=== PATIENT | female | born 1950 | race Caucasian/White ===

== ENCOUNTER 2016-10-05 14:17 | Observation (INO) | payer MEDICARE ==
[2016-10-05 15:45] LABS: Mean Cell Volume 90.2 fl (78-100); Mean Platelet Volume 9.9 fl (6-9.5); Platelet Count 172 K/mm3 (150-450); Red Cell Distribution Width 14.3 % (11.5-14.0)
[2016-10-05 16:01] LABS: ANION GAP 12.8 MEQ/L (5-15); BLOOD UREA NITROGEN 12 mg/dL (9-20); CHLORIDE 107 mEq/L (98-107); Carbon Dioxide 25.3 mEq/L (21-32); Glucose 108 MG/DL (70-110); Potassium 3.9 mEq/L (3.5-5.1); SODIUM 141 mEq/L (136-145)
[2016-10-05] MEDS ORDERED: Sodium Chloride 0.9% 1000 ML 1,000 ML IV STA (16:48)
[2016-10-05] MEDS ORDERED: NovoLOG Insulin SQ PRN (16:48)
[2016-10-05] MEDS ORDERED: Zofran 4 MG/2 ML VIAL IV PRN (16:48)
[2016-10-05] MEDS ORDERED: TYLENOL 325 MG PO PRN (16:48)
[2016-10-05] MEDS: Sodium Chloride 0.9% 1000 ML 1,000 ML IV SCH (17:02)
--- NOTE | 2016-10-05 17:14 | XRAY ---
Indication: Cough, nausea, and vomiting. Comparison: December 20, 2014. Portable chest again clear. Heart and mediastinal structures within normal limits for AP portable technique. Bony thorax intact again with mild osteopenia and degenerative changes. Impression: Stable nonacute chest.
[2016-10-05] MEDS ORDERED: DUONEB 0.5-3 MG/3 ml Neb IH ONE (17:22)
[2016-10-05] MEDS: DUONEB 0.5-3 MG/3 ml Neb IH SCH ×3 (17:26→22:27)
[2016-10-05 17:27] LABS: Mean Corpuscular Hemoglobin 27.9 pg (26-32); Mean Platelet Volume 10.2 fl (6-9.5); Platelet Count 165 K/mm3 (150-450); Red Blood Count 4.51 M/mm3 (4.1-5.4); Red Cell Distribution Width 14.2 % (11.5-14.0); White Blood Count 4.9 K/mm3 (4.0-10.5)
[2016-10-05 17:45] LABS: ALBUMIN 3.2 g/dL (3.4-5.0); ALKALINE PHOSPHATASE 58 U/L (46-116); ANION GAP 12.8 MEQ/L (5-15); BILIRUBIN,TOTAL 0.4 mg/dL (0.2-1.0); BLOOD UREA NITROGEN 12 mg/dL (9-20); CHLORIDE 107 mEq/L (98-107); Carbon Dioxide 26.2 mEq/L (21-32); Glucose 102 MG/DL (70-110); SGOT/AST 26 U/L (15-37); SGPT/ALT 18 U/L (12-78); SODIUM 142 mEq/L (136-145)
[2016-10-05 19:12] LABS: ATYPICAL LYMPHS 1 %; BAND 4 % (0.0-2.0); Platelet Estimate NORMAL (NORMAL); Total Cells Counted 100
[2016-10-05] MEDS: Zestril 10 MG PO SCH (22:21)
[2016-10-05 23:41] LABS: COMPLETE URINE MICROSCOPIC? YES; Collection Type CLEAN CATCH; Ph 6.5 (5-6)
[2016-10-05 23:42] LABS: Bacteria FEW /HPF (NEGATIVE); Epithelial Cells FEW /HPF (FEW)
[2016-10-06] MEDS: DUONEB 0.5-3 MG/3 ml Neb IH SCH ×6 (03:32→23:23)
[2016-10-06] MEDS ORDERED: NON-FORMULARY ITEM (Ondansetron Hcl [Zofran] 4 MG) PO PRN (06:57)
[2016-10-06] MEDS: ENOXAPARIN SODIUM SQ SCH (09:05)
[2016-10-06] MEDS: Ditropan XL 5 MG PO SCH (10:00)
[2016-10-06] MEDS: Klor Con 10 MEQ PO SCH (10:00)
[2016-10-06] MEDS ORDERED: FLUZONE HIGH-DOSE 2016-17 SYR IM ONE (10:00)
[2016-10-06] MEDS ORDERED: OXYBUTYNIN CHLORIDE 10 MG PO SCH (10:00)
[2016-10-06] MEDS: Mobic 7.5 MG PO SCH (10:00)
[2016-10-06] MEDS: Zestril 10 MG PO SCH ×2 (10:00→21:41)
[2016-10-06] MEDS: Sodium Chloride 0.9% 1000 ML 1,000 ML IV SCH (14:09)
--- NOTE | 2016-10-06 14:24 | PROG NOTE ---
DATE: 10/06/2016 Chart is reviewed and events noted. At the time of this evaluation the patient is alert, awake, and comfortable. Complains of cough with green phlegm. Complains of loss of appetite. She had vomiting earlier this morning. Appears comfortable. PHYSICAL EXAMINATION: VITAL SIGNS: Blood pressure 117/56, heart rate 81, respiratory rate 20, temperature 97.8F. Oxygen saturation 96% on room air. HEENT: No pallor or icterus is noted. NECK: No JVD is present. CVS: S1, S2 present. RESPIRATORY: Breath sounds are bilaterally diminished and clear to auscultation anteriorly. ABDOMEN: Obese, soft, nontender. NEURO: She is alert, awake, answers simple questions appropriately, follows simple commands appropriately. EXTREMITIES: Chronic stasis changes in bilateral lower extremities. LABORATORY DATA AND TESTS: Labs from admission were noted. Chest x-ray showed no acute changes. Urine culture has been no growth so far. Blood cultures from 10/05/2016 are pending. Medications were reviewed. ASSESSMENT: A 66 year old woman with impression: 1) Acute bronchopneumonia. 2) Dehydration. 3) History of vomiting. 4) Question of urinary tract infection. 5) History of hypertension. 6) History of diabetes mellitus. 7) Prior history of transient ischemic attack. 8) Obesity. PLAN: The patient is admitted for further monitoring and management. Will continue IV fluids, PRN antiemetic. Will add a broad spectrum IV antibiotic. Will obtain flu test. The patient's was reportedly sick with similar symptoms/flu last week. Likely discharge home tomorrow. The patient's clinical condition, work-up results and plan of management were discussed with her. She seems to be in understanding and agreement. Will discuss with patient's daughter. Discussed with patient nurse.
[2016-10-06] MEDS: PROTONIX 40 MG IV IV SCH (14:35)
[2016-10-06] MEDS: Levofloxacin 500MG/100ML D5W 100 ML IV SCH (14:35)
[2016-10-07] MEDS: DUONEB 0.5-3 MG/3 ml Neb IH SCH ×3 (04:11→10:34)
[2016-10-07] MEDS: Zestril 10 MG PO SCH (10:17)
[2016-10-07] MEDS: Mobic 7.5 MG PO SCH (10:17)
[2016-10-07] MEDS: Ditropan XL 5 MG PO SCH (10:17)
[2016-10-07] MEDS: PROTONIX 40 MG IV IV SCH (10:17)
[2016-10-07] MEDS: Klor Con 10 MEQ PO SCH (10:17)
[2016-10-07] MEDS: ENOXAPARIN SODIUM SQ SCH (10:22)
[2016-10-07] MEDS: Sodium Chloride 0.9% 1000 ML 1,000 ML IV SCH (10:28)
[2016-10-07] MEDS: Levofloxacin 500MG/100ML D5W 100 ML IV SCH (12:56)
[2016-10-07] MEDS ORDERED: DUONEB 0.5-3 MG/3 ml Neb IH SCH (15:00)
[2016-10-07 15:49] VITALS: BP 150/58; PULSE 79; O2SAT 97
--- NOTE | 2016-10-08 12:15 | DS ---
DISCHARGE DIAGNOSES: 1) ACUTE BRONCHOPNEUMONIA, CLINICALLY IMPROVED. 2) DEHYDRATION, CLINICALLY RESOLVED. 3) HISTORY OF VOMITING, RESOLVED. 4) URINARY TRACT INFECTION. 5) HYPERTENSION. 6) DIABETES MELLITUS. 7) HISTORY OF TRANSIENT ISCHEMIC ATTACK. 8) OBESITY. HOSPITAL COURSE: Belle Barnes is a 66 year-old woman with past medical history of hypertension, diabetes mellitus, prior history of transient ischemic attack and obesity. She was seen by Dr. Alba in the office on 10/05/2016 and was admitted from office with persistent cough and dehydration. Lab work up on admission was essentially unremarkable. Urine culture essentially unremarkable. UA with few epithelial cells, few bacteria. She was placed on IV fluids. Subsequent lab work up had revealed unremarkable CBC. Normal hemoglobin A1C. Urine culture from 10/05/2016 had revealed no growth. Blood cultures from 10/05/2016 revealed no growth x2. She had been started on IV antibiotics with improvement of her symptoms. She was placed on regular diet that she had tolerated well. The rest of her course was essentially more or less unremarkable. She improved clinically. At the time of this evaluation she is alert, awake, comfortable, still having some cough however overall feels better. She denies any vomiting. She has been tolerating diet well. She feels better and is wishing to go home. Appears comfortable. PHYSICAL EXAMINATION: VITAL SIGNS: Blood pressure 116/55, heart rate 73, respiratory rate 22, temperature 98.7F. Oxygen saturation 92%. HEENT: No pallor or icterus is noted. NECK: No JVD is present. CVS: S1, S2 present. RESPIRATORY: Breath sounds are bilaterally diminished, occasional scattered wheezing present. ABDOMEN: Obese, soft. Minimal left upper abdominal tenderness (from coughing per patient). NEURO: She is alert, oriented x3. EXTREMITIES: Edema and chronic stasis changes in bilateral lower extremities. LABORATORY DATA AND TESTS: There were no new labs today. Flu A/B from yesterday was negative. Respiratory syncytial virus was negative. Lipase from yesterday was within normal limits. Medications were reviewed. ASSESSMENT: As outlined in discharge diagnoses. PLAN: The patient was admitted with acute bronchopneumonia/vomiting after prolonged cough. She was placed on IV fluids and antibiotics with clinical improvement. Her course has been essentially unremarkable. She improved clinically, remained hemodynamically stable. She was ambulating with stable oxygen saturations. She is being discharged home in stable condition. After discharge she will be continued on p.o. Levaquin for an additional three days. She has also been started on Medrol Dosepak and Tussionex. I have advised the patient to follow up with Dr. Alba in office in four to five days. Compliance with diet and medications was stressed. Complete cessation of smoking was stressed. I have advised her to continue to monitor her Accu-Chek and blood sugars closely. I advised her to return to the Emergency Room [facility] if any new signs and symptoms or reappearance of previous signs and symptoms are noted. The patient's clinical condition, work-up results and plan of management and plan after discharge were discussed at great length with patient and her daughter. They seem to be in understanding and agreement. They declined having any questions or concerns that remain unanswered. Please refer to patient's chart, labs, diagnostic work up for details. Please refer to discharge medication list from 10/07/2016 for details of medications on discharge.
== END 2016-10-07 17:00 | disposition home or self-care (01) ==
LOC: MED SURG 14:17
PROVIDERS: ADMIT General Practice; ATTEND General Practice
DX: J18.0 Bronchopneumonia, unspecified organism (principal); E86.0 Dehydration; N39.0 Urinary tract infection, site not specified; I10 Essential (primary) hypertension; E11.9 Type 2 diabetes mellitus without complications; Z79.4 Long term (current) use of insulin; Z86.73 Personal history of transient ischemic attack (TIA), and cerebral infarction without residual deficits; E66.9 Obesity, unspecified; G47.30 Sleep apnea, unspecified; K44.9 Diaphragmatic hernia without obstruction or gangrene; Z23 Encounter for immunization
CPT/HCPCS: 36415; 71010; 80048; 80053; 81000; 82962; 83036; 83690; 84134; 85025; 85027; 87040; 87086; 87631; 90662; 94640; 94760; G0008; G0378; J1650; J1956; J2405

== ENCOUNTER 2018-12-16 17:02 | Observation (INO) | payer MEDICARE ==
--- NOTE | 2018-12-16 17:17 | ERPHSYRPT ---
- History of Present Illness Time Seen by Provider: 12/16/18 17:14 Source: patient, EMS Exam Limitations: no limitations Patient Subjective Stated Complaint: pt arrived per ambulance for weakness, she states she fell once today and was able to get up with grandsons help. but states she is unable to get up now, Triage Nursing Assessment: pt alert, resp easy, skin w/d/p, has suprapubic cath in place with cloudy yellow urine, abd soft, has dry scally legs with some edema noted Physician History: pt is 68 year old female with acute onset weakness , nonfocal neuro , had fall but is nontender all ext without pain except hips , no CP , no abd pain , has chronic cath as suprapubic in place more than a year; also had fall striking head and back with hip pain now and dizziness Timing/Duration: today Severity: moderate Modifying Factors: Improves With: movement Associated Symptoms: malaise, weakness Allergies/Adverse Reactions: amoxicillin Allergy (Verified 12/16/18 17:11) Swelling of Tongue and Lips pregabalin [From Lyrica] Allergy (Verified 12/16/18 17:11) swelling morphine Adverse Reaction (Severe, Verified 12/16/18 17:11) Difficulty Breathing Home Medications: Furosemide [Lasix] 20 mg PO DAILY 02/18/16 [History] Lisinopril 10 mg [Zestril 10 MG] 10 mg PO BID 02/18/16 [History] Potassium Chloride 10 Meq Tab* [Klor Con 10 MEQ] 10 meq PO DAILY 02/18/16 [ History] Ondansetron HCl [Zofran] 4 mg PO Q8HPRN PRN 10/05/16 [History] Fesoterodine Fumarate [Toviaz] 8 mg DAILY 12/16/18 [History] Sertraline HCl 50 mg DAILY 12/16/18 [History] Tramadol HCl 50 mg [Ultram 50 mg] 50 mg BID 12/16/18 [History] Hx Tetanus, Diphtheria Vaccination/Date Given: Yes Hx Influenza Vaccination/Date Given: No Hx Pneumococcal Vaccination/Date Given: No Immunizations Up to Date: Yes - Review of Systems Constitutional: Malaise, Weakness, No Fever, No Chills Eyes: No Symptoms Ears, Nose, & Throat: No Symptoms Respiratory: No Cough, No Dyspnea Cardiac: No Chest Pain, No Edema, No Syncope Abdominal/Gastrointestinal: No Abdominal Pain, No Nausea, No Vomiting, No Diarrhea Genitourinary Symptoms: No Dysuria Musculoskeletal: No Back Pain, No Neck Pain Skin: No Rash Neurological: Dizziness, No Focal Weakness, No Sensory Changes Psychological: No Symptoms Endocrine: No Symptoms Hematologic/Lymphatic: No Symptoms Immunological/Allergic: No Symptoms All Other Systems: Reviewed and Negative - Past Medical History Pertinent Past Medical History: Yes Neurological History: Peripheral Neuropathy, TIA ENT History: Other Cardiac History: Hypertension Respiratory History: COPD, Sleep Apnea Endocrine Medical History: Diabetes Type II Musculoskeletal History: Arthritis GI Medical History: GERD, Other History: Other Psycho-Social History: Anxiety, Depression Female Reproductive Disorders: No Pertinent History Other Medical History: bladder incontinence hysterectomy and gall bladder removed, dry eyes - Past Surgical History Past Surgical History: Yes Neuro Surgical History: No Pertinent History Cardiac: No Pertinent History Respiratory: No Pertinent History Gastrointestinal: Cholecystectomy, Colon Resection Genitourinary: No Pertinent History Musculoskeletal: No Pertinent History Female Surgical History: Hysterectomy, Tubal Ligation - Social History Smoking Status: Former smoker Exposure to second hand smoke: No Drug Use: none Patient Lives Alone: No - Female History Hx Last Menstrual Period: psot Hx Now: No - Nursing Vital Signs Nursing Vital Signs: Initial Vital Signs Temperature 97.4 F 12/16/18 17:04 Pulse Rate 73 12/16/18 17:04 Respiratory Rate 18 12/16/18 17:04 Blood Pressure 131/67 12/16/18 17:04 O2 Sat by Pulse Oximetry 93 L 12/16/18 17:04 Pain Scale Pain Intensity 0 - Physical Exam General Appearance: no apparent distress, alert Eye Exam: PERRL/EOMI, eyes nml inspection Ears, Nose, Throat Exam: normal ENT inspection, TMs normal, pharynx normal, moist mucous membranes Neck Exam: normal inspection, non-tender, supple, full range of motion Respiratory Exam: normal breath sounds, lungs clear, No respiratory distress Cardiovascular Exam: regular rate/rhythm, normal heart sounds, normal peripheral pulses Gastrointestinal/Abdomen Exam: soft, normal bowel sounds, No tenderness, No mass Pelvic Exam: deferred Rectal Exam: deferred Back Exam: normal inspection, normal range of motion, other (mid and lower paravert tenderness), No CVA tenderness Extremity Exam: normal inspection, normal range of motion, pelvis stable Neurologic Exam: alert, oriented x 3, cooperative, normal mood/affect, nml cerebellar function, nml station & gait, sensation nml, No motor deficits Skin Exam: normal color, warm, dry, No rash Lymphatic Exam: No adenopathy SpO2: 93 - Course Nursing assessment & vital signs reviewed: Yes EKG Interpreted by Me: Sinus Rhythm, NORMAL AXIS, LAFB, NORMAL INTERVALS, Non- specific ST Changes - Radiology Exams Chest X-ray Interpretation: Reviewed by me, Infiltrates Hip X-ray Interpretation: Reviewed by me, Other (possible nondisp left hip fx - sent to rad for stat) L-Spine X-ray Interpretation: Reviewed by me, Other (DJD and lipping cannot rule out mild comp fx) T-Spine X-ray Interpretation: Reviewed by me, Other (djd ant lipping cannot rule out mild comp fxs) - CT Exams Head CT Interpretation: Discussed w/radiologist, Tele-radiologist Report, No/ Intracranial Hemorrhag Chest CT Interpretation: Discussed w/radiologist, Tele-radiologist Report, No PE ( study was not able to see mid and distal vessels well, but no large vessel PE) Ordered Tests: Active Orders 24 hr Category Date Time Status EKG-ER Only STAT Care 12/16/18 17:17 Active IV Insertion STAT Care 12/16/18 17:17 Active CHEST 2 VIEWS (PA AND LAT) Stat Exams 12/16/18 17:18 Completed CHEST WITH CONTRAST [CT] Stat Exams 12/16/18 17:50 Completed HEAD WITHOUT CONTRAST [CT] Stat Exams 12/16/18 17:21 Completed HIPS BENNETT(2V) INCL PEL IF DONE Stat Exams 12/16/18 17:25 Completed LUMBAR LIMITED (2 OR 3 VIEWS) Stat Exams 12/16/18 17:24 Completed THORACIC SPINE (AP,LAT,SWIMM) Stat Exams 12/16/18 17:24 Completed CBC W DIFF Stat Lab 12/16/18 17:30 Completed CMP Stat Lab 12/16/18 17:30 Completed CULTURE,URINE Stat Lab 12/16/18 19:42 Received D-DIMER QUANTITATION Stat Lab 12/16/18 17:30 Completed LIPASE Stat Lab 12/16/18 17:30 Completed Lactic Acid Stat Lab 12/16/18 17:17 Completed Manual Differential NC Stat Lab 12/16/18 17:30 Completed NT PRO BNP Stat Lab 12/16/18 17:30 Completed T4 (Thyroxine) Stat Lab 12/16/18 17:30 Completed TROPONIN Q3H Lab 12/16/18 20:44 Received TROPONIN Q3H Lab 12/16/18 23:30 Ordered TROPONIN Q3H Lab 12/17/18 02:30 Ordered TROPONIN Q3H Lab 12/17/18 05:30 Ordered TROPONIN Stat Lab 12/16/18 17:30 Completed TSH, 3RD Generation Stat Lab 12/16/18 17:30 Completed UA W/RFX UR CULTURE Stat Lab 12/16/18 19:42 Completed Lab/Rad Data: Laboratory Result Diagrams 12/16/18 17:30 12/16/18 17:30 Laboratory Results 12/16/18 12/16/18 12/16/18 Range/Units 20:30 19:42 17:30 WBC (4.0-10.5) K/mm3 RBC (4.1-5.4) M/mm3 Hgb (12.0-16.0) gm/dl Hct (35-47) % MCV (78-100) fl MCH (26-32) pg MCHC (32-36) g/dl RDW (11.5-14.0) % Plt Count (150-450) K/mm3 Segmented Neutrophils (36.0-66.0) % Band Neutrophils (0.0-2.0) % Lymphocytes (Manual) (24-44) % Monocytes (Manual) (0.0-12.0) % Eosinophils (Manual) (0.00-3.0) % Atypical Lymphocytes % Platelet Estimate (NORMAL) RBC Morphology Anisocytosis D-Dimer 1222 H* (215-500) ng/mL Sodium (137-145) mmol/L Potassium (3.5-5.1) mmol/L Chloride (98-107) mmol/L Carbon Dioxide (22-30) mmol/L Anion Gap (5-15) MEQ/L BUN (7-17) mg/dL Creatinine (0.52-1.04) mg/dL Estimated GFR ML/MIN Glucose (74-106) mg/dL Lactic Acid (0.4-2.0) Calcium (8.4-10.2) mg/dL Total Bilirubin (0.2-1.3) mg/dL AST (14-36) U/L ALT (0-35) U/L Alkaline Phosphatase (38-126) U/L Troponin I (0.000-0.034) ng/mL NT-Pro-B Natriuret Pep (0-900) pg/mL Serum Total Protein (6.3-8.2) g/dL Albumin (3.5-5.0) g/dL Lipase (23-300) U/L Thyroxine (T4) (5.53-10.96) ug/dL TSH 3rd Generation (0.47-4.68) mIU/L Urine Color STRAW (YELLOW) Urine Appearance CLEAR (CLEAR) Urine pH 7.0 (5-6) Ur Specific [place] 1.015 (1.005-1.025) Urine Protein NEGATIVE (Negative) Urine Ketones NEGATIVE (NEGATIVE) Urine Blood SMALL (0-5) Efren/ul Urine Nitrite POSITIVE (NEGATIVE) Urine Bilirubin NEGATIVE (NEGATIVE) Urine Urobilinogen NEGATIVE (0-1) mg/dL Ur Leukocyte Esterase LARGE (NEGATIVE) Urine WBC (Auto) 26-50 (0-5) /HPF Urine RBC (Auto) 3-5 (0-2) /HPF U Epithel Cells (Auto) NONE (FEW) /HPF Urine Bacteria (Auto) RARE (NEGATIVE) /HPF Urine Mucus (Auto) SLIGHT (NEGATIVE) /HPF Urine Culture Reflexed YES (NO) Urine Glucose NEGATIVE (NEGATIVE) mg/dL Influenza Type A Ag NEGATIVE (NEGATIVE) Influenza Type B Ag NEGATIVE (NEGATIVE) RSV (PCR) NEGATIVE (Negative) 12/16/18 12/16/18 12/16/18 Range/Units 17:30 17:30 17:17 WBC 9.0 (4.0-10.5) K/mm3 RBC 4.89 (4.1-5.4) M/mm3 Hgb 14.1 (12.0-16.0) gm/dl Hct 44.4 (35-47) % MCV 90.8 (78-100) fl MCH 28.8 (26-32) pg MCHC 31.8 L (32-36) g/dl RDW 14.0 (11.5-14.0) % Plt Count 230 (150-450) K/mm3 Segmented Neutrophils 64 (36.0-66.0) % Band Neutrophils 2 (0.0-2.0) % Lymphocytes (Manual) 24 (24-44) % Monocytes (Manual) 4 (0.0-12.0) % Eosinophils (Manual) 1 (0.00-3.0) % Atypical Lymphocytes 5 % Platelet Estimate NORMAL (NORMAL) RBC Morphology NORMAL Anisocytosis 1+ D-Dimer (215-500) ng/mL Sodium 141 (137-145) mmol/L Potassium 3.3 L (3.5-5.1) mmol/L Chloride 100 (98-107) mmol/L Carbon Dioxide 31 H (22-30) mmol/L Anion Gap 14.2 (5-15) MEQ/L BUN 18 H (7-17) mg/dL Creatinine 1.04 (0.52-1.04) mg/dL Estimated GFR 56.0 ML/MIN Glucose 115 H (74-106) mg/dL Lactic Acid 1.6 (0.4-2.0) Calcium 9.0 (8.4-10.2) mg/dL Total Bilirubin 0.50 (0.2-1.3) mg/dL AST 33 (14-36) U/L ALT 23 (0-35) U/L Alkaline Phosphatase 68 (38-126) U/L Troponin I < 0.012 (0.000-0.034) ng/mL NT-Pro-B Natriuret Pep 90.4 (0-900) pg/mL Serum Total Protein 7.5 (6.3-8.2) g/dL Albumin 4.0 (3.5-5.0) g/dL Lipase 83 (23-300) U/L Thyroxine (T4) 17.6 H (5.53-10.96) ug/dL TSH 3rd Generation 0.727 (0.47-4.68) mIU/L Urine Color (YELLOW) Urine Appearance (CLEAR) Urine pH (5-6) Ur Specific [place] (1.005-1.025) Urine Protein (Negative) Urine Ketones (NEGATIVE) Urine Blood (0-5) Efren/ul Urine Nitrite (NEGATIVE) Urine Bilirubin (NEGATIVE) Urine Urobilinogen (0-1) mg/dL Ur Leukocyte Esterase (NEGATIVE) Urine WBC (Auto) (0-5) /HPF Urine RBC (Auto) (0-2) /HPF U Epithel Cells (Auto) (FEW) /HPF Urine Bacteria (Auto) (NEGATIVE) /HPF Urine Mucus (Auto) (NEGATIVE) /HPF Urine Culture Reflexed (NO) Urine Glucose (NEGATIVE) mg/dL Influenza Type A Ag (NEGATIVE) Influenza Type B Ag (NEGATIVE) RSV (PCR) (Negative) - Progress Progress: improved, re-examined Progress Note: 12/16/18 19:36 risk benefit if PE protocol dye discussed with family and pt and they wish to proceed also knowing renal risk and slight elevation of BUN but within protocol limits. 12/16/18 19:38 pt and family advised of CAD adn enlarged heart on CT for f/u PCP. 12/16/18 20:10 still waiting for urine result causing some additional delay. 12/16/18 21:21 discussed with pt and Dr. pineda and will place on obs and correct K and treat UTI and recheck T4 , hold tx for T 4 at this time; Discussed with .: Neri Will see patient in: hospital (observation) Counseled pt/family regarding: lab results, diagnosis, need for follow-up, rad results - Departure Departure Disposition: Observation Clinical Impression: Weakness generalized, Hypokalemia, UTI (urinary tract infection), elevated thyroid test Condition: Good Critical Care Time: No Referrals: TASHI NEVAREZ MD [Primary Care Provider] -
[2018-12-16 17:34] LABS: Hematocrit 44.4 % (35-47); Hemoglobin 14.1 gm/dl (12.0-16.0); Mean Cell Volume 90.8 fl (78-100); Mean Corpuscular Hemoglobin 28.8 pg (26-32); Mean Corpuscular Hgb Concent. 31.8 g/dl (32-36); Platelet Count 230 K/mm3 (150-450); Red Blood Count 4.89 M/mm3 (4.1-5.4)
[2018-12-16 18:14] LABS: ALKALINE PHOSPHATASE 68 U/L (38-126); ANION GAP 14.2 MEQ/L (5-15); BLOOD UREA NITROGEN 18 mg/dL (7-17); CHLORIDE 100 mmol/L (98-107); Carbon Dioxide 31 mmol/L (22-30); Creatinine 1 1.04 mg/dL (0.52-1.04); Glucose 115 mg/dL (74-106); LIPASE 83 U/L (23-300); NT PRO BNP 90.4 pg/mL (0-900); Potassium 3.3 mmol/L (3.5-5.1); SGOT/AST 33 U/L (14-36); SGPT/ALT 23 U/L (0-35); SODIUM 141 mmol/L (137-145); TSH, 3RD Generation 0.727 mIU/L (0.47-4.68); Total Protein 7.5 g/dL (6.3-8.2)
[2018-12-16 18:17] LABS: TROPONIN < 0.012 ng/mL (0.000-0.034)
[2018-12-16 18:28] LABS: ANISOCYTOSIS 1+; ATYPICAL LYMPHS 5 %; BAND 2 % (0.0-2.0); Eosinophil 1 % (0.00-3.0); Lymphocytes 24 % (24-44); Monocyte 4 % (0.0-12.0); Neutrophils 64 % (36.0-66.0); Platelet Estimate NORMAL (NORMAL); Total Cells Counted 100
--- NOTE | 2018-12-16 20:34 | XRAY ---
Indication: Elevated d-dimer. Status post fall. Multiple contiguous axial images obtained through the chest using 100 cc Isovue 300 contrast and PE protocol. Comparison: February 18, 2016. There is poor opacification of the pulmonary arteries limiting evaluation for pulmonary embolus. No large central pulmonary embolus. Heart is not enlarged. Aorta is normal in course and caliber. Stable small left hilar calcified nodes. No pathologic mediastinal/hilar lymphadenopathy. Examination of the lung parenchyma demonstrates minimal bilateral dependent atelectasis. No suspicious pulmonary mass, infiltrate, effusion, or pneumothorax. Bony thorax intact again with mild degenerative changes throughout the spine. Limited upper abdomen unremarkable. Impression: 1. Pulmonary embolus evaluation limited due to suboptimal contrast opacification. No large central pulmonary embolus. 2. Stable left hilar calcified node. 3. Remaining CT chest with contrast exam is negative. Comment: Preliminary interpretation was made by [facility]. No discrepancy. CTDI 23.68
--- NOTE | 2018-12-16 20:36 | XRAY ---
Indication: Status post fall. Comparison: October 05, 2016. Portable chest remains clear. Heart is not enlarged. Bony thorax intact again with mild osteopenia and degenerative changes. Impression: Stable nonacute chest with chronic features.
--- NOTE | 2018-12-16 20:39 | XRAY ---
Indication: Pain following fall. Multiple contiguous axial images obtained through the head without contrast. Comparison: February 18, 2016. Again age appropriate global atrophy and minimal periventricular degenerative micro-ischemia. No acute intracranial hemorrhage, abnormal extra-axial fluid collection, or mass effect. Fourth ventricle is midline without hydrocephalus. Bony calvarium intact. Visualized paranasal sinuses and mastoid air cells are clear. Impression: Stable nonacute senile brain. Comment: Preliminary interpretation was made by [facility]. No discrepancy. CTDI 49.41
[2018-12-16 20:40] LABS: Appearance CLEAR (CLEAR); Bacteria RARE /HPF (NEGATIVE); Bilirubin NEGATIVE (NEGATIVE); Blood SMALL Ery/ul (0-5); Glucose NEGATIVE (NEGATIVE); Ketones NEGATIVE (NEGATIVE); Leukocyte Esterase LARGE (NEGATIVE); Mucus SLIGHT /HPF (NEGATIVE); Nitrite POSITIVE (NEGATIVE); Protein,Urine Dip NEGATIVE (Negative); Specific Gravity 1.015 (1.005-1.025); Urobilinogen NEGATIVE mg/dL (0-1); WBC 26-50 /HPF (0-5)
[2018-12-16 20:41] LABS: INFLUENZA A NEGATIVE (NEGATIVE); INFLUENZA B NEGATIVE (NEGATIVE); RESPIRATORY SYNCTIAL VIRUS NEGATIVE (Negative)
--- NOTE | 2018-12-16 20:41 | XRAY ---
Indication: Pain following fall. Comparison: February 21, 2010. 3 views of the lumbar spine again demonstrates osteopenia, mild/moderate L4-S1 degenerative disc disease, minimal multilevel anterior endplate spurring, advanced degenerative changes of both hips, and minimal aortic calcifications. No acute fracture, subluxation, or soft tissue abnormalities. Impression: Nonacute lumbar spine with chronic features.
--- NOTE | 2018-12-16 20:41 | XRAY ---
Indication: Pain following fall. Comparison: None Frontal/lateral thoracic spine demonstrates 12 typical rib-bearing thoracic vertebral segments in normal alignment with mild osteopenia and mild/moderate multilevel bridging and nonbridging end plate osteophytes. No other bony, articular, or soft tissue abnormalities.
--- NOTE | 2018-12-16 20:45 | XRAY ---
Indication: Pain following fall. Comparison: Right hip exam September 01, 2010 and pelvis exam February 21, 2010. AP pelvis and 2 views of the left and right hip again demonstrates osteopenia with progressive worsening advanced degenerative changes of both hips, again left greater than right including worsening left femur head lateral subluxation. No new/acute findings. Lumbar spine reported separately. Comment: Preliminary interpretation was made by [facility]. No discrepancy.
[2018-12-16] MEDS ORDERED: K-LYTE 25 MEQ PO ONE (22:34)
[2018-12-16] MEDS ORDERED: NovoLIN R SQ PRN (22:34)
[2018-12-16] MEDS ORDERED: TYLENOL 325 MG PO PRN (22:34)
[2018-12-16] MEDS ORDERED: Zofran 4 MG/2 ML VIAL IV PRN (22:34)
[2018-12-16] MEDS: Sodium Chloride 0.9% 1000 ML 1,000 ML IV SCH (23:08)
[2018-12-16] MEDS: POTASSIUM CHLORIDE 20 mEq IN WATER 100ML 20 MEQ/100 ML BAG IV SCH (23:29)
[2018-12-17] MEDS: POTASSIUM CHLORIDE 20 mEq IN WATER 100ML 20 MEQ/100 ML BAG IV SCH (01:33)
[2018-12-17 06:14] LABS: Hemoglobin 12.6 gm/dl (12.0-16.0); Mean Cell Volume 91.3 fl (78-100); Mean Corpuscular Hemoglobin 28.8 pg (26-32); Mean Corpuscular Hgb Concent. 31.5 g/dl (32-36); Mean Platelet Volume 10.1 fl (6-9.5); Platelet Count 203 K/mm3 (150-450); Red Blood Count 4.38 M/mm3 (4.1-5.4); White Blood Count 5.8 K/mm3 (4.0-10.5)
[2018-12-17 06:24] LABS: ALBUMIN 3.2 g/dL (3.5-5.0); ALKALINE PHOSPHATASE 57 U/L (38-126); ANION GAP 8.7 MEQ/L (5-15); BLOOD UREA NITROGEN 17 mg/dL (7-17); CHLORIDE 101 mmol/L (98-107); Calcium 8.2 mg/dL (8.4-10.2); Carbon Dioxide 31 mmol/L (22-30); Glucose 114 mg/dL (74-106); SGOT/AST 32 U/L (14-36); SGPT/ALT 21 U/L (0-35); SODIUM 136 mmol/L (137-145); Total Protein 6.5 g/dL (6.3-8.2)
[2018-12-17 06:45] LABS: Potassium 4.1 mmol/L (3.5-5.1)
[2018-12-17] MEDS: Sodium Chloride 0.9% 1000 ML 1,000 ML IV SCH ×2 (06:46→17:13)
[2018-12-17 08:25] LABS: BAND 1 % (0.0-2.0); Basophil 2 % (0.0-1.0); Eosinophil 1 % (0.00-3.0); Lymphocytes 29 % (24-44); Monocyte 4 % (0.0-12.0); Neutrophils 63 % (36.0-66.0); Total Cells Counted 100
[2018-12-17 08:26] LABS: Platelet Estimate NORMAL (NORMAL)
--- NOTE | 2018-12-17 09:08 | PCM.HP ---
History of Present Illness - Chief Complaint Chief Complaint: c/o generalised weakness for 3-4 days History of Present Illness: pt is 68 year old female with acute onset weakness , nonfocal neuro , had fall but is nontender all ext without pain except hips , no CP , no abd pain , has chronic cath as suprapubic in place more than a year; also had fall striking head and back with hip pain now and dizziness - Review of Systems Constitutional: No Fever, No Chills Eyes: No Symptoms Ears, Nose, & Throat: No Symptoms Respiratory: No Cough, No Short Of Breath Cardiac: No Chest Pain, No Edema, No Syncope Abdominal/Gastrointestinal: No Abdominal Pain, No Nausea, No Vomiting, No Diarrhea Genitourinary Symptoms: No Dysuria Musculoskeletal: No Back Pain, No Neck Pain Skin: No Rash Neurological: No Dizziness, No Focal Weakness, No Sensory Changes Psychological: No Symptoms Endocrine: No Symptoms Hematologic/Lymphatic: No Symptoms Immunological/Allergic: No Symptoms Medications & Allergies Home Medications: Home Medication List Furosemide [Lasix] 20 mg PO DAILY 02/18/16 [History Confirmed 12/16/18] Lisinopril 10 mg [Zestril 10 MG] 10 mg PO BID 02/18/16 [History Confirmed 12/16/18] Potassium Chloride 10 Meq Tab* [Klor Con 10 MEQ] 10 meq PO DAILY 02/18/16 [ History Confirmed 12/16/18] Ondansetron HCl [Zofran] 4 mg PO Q8HPRN PRN 10/05/16 [History Confirmed 12/16/18 ] Fesoterodine Fumarate [Toviaz] 8 mg DAILY 12/16/18 [History Confirmed 12/16/18] Sertraline HCl 50 mg DAILY 12/16/18 [History Confirmed 12/16/18] Tramadol HCl 50 mg [Ultram 50 mg] 50 mg BID 12/16/18 [History Confirmed ] Allergies/Adverse Reactions: Allergies Allergy/AdvReac Type Severity Reaction Status Date / Time amoxicillin Allergy Swelling Verified 12/16/18 17:11 of Tongue and Lips pregabalin [From Lyrica] Allergy Verified 12/16/18 17:11 morphine AdvReac Severe Difficulty Verified 12/16/18 17:11 Breathing - Past Medical History Past Medical History: Yes Neurological History: Peripheral Neuropathy, TIA ENT History: Other Cardiac History: Hypertension Respiratory History: COPD, Sleep Apnea Endocrine Medical History: Diabetes Type II Musculoskelatal History: Arthritis GI Medical History: GERD, Other History: Other Pyscho-Social History: Anxiety, Depression Reproductive Disorders: No Pertinent History Comment: bladder incontinence hysterectomy and gall bladder removed, dry eyes - Female History Hx Last Menstrual Period: psot Are you now?: No - Past Surgical History Past Surgical History: Yes Neuro Surgical History: No Pertinent History Cardiac History: No Pertinent History Respiratory Surgery: No Pertinent History GI Surgical History: Cholecystectomy, Colon Resection Genitourinary Surgical Hx: No Pertinent History Musculskeletal Surgical Hx: No Pertinent History Female Surgical History: Hysterectomy, Tubal Ligation - Social History Smoking Status: Never smoker Exposure to second hand smoke: No Alcohol: None Drug Use: none - Physical Exam Vital Signs: Vital Signs - 24 hr Temp Pulse Resp BP Pulse Ox 12/17/18 08:00 98.2 F 69 18 133/57 94 L 12/17/18 03:48 98.8 F 73 18 119/56 94 L 12/17/18 00:10 97.4 F 72 128/56 93 L 12/16/18 22:55 93 L 12/16/18 21:23 93 L 12/16/18 21:07 72 18 128/56 94 L 12/16/18 20:13 77 18 136/57 93 L 12/16/18 19:33 75 16 134/69 95 12/16/18 17:04 97.4 F 73 18 131/67 93 L General Appearance: no apparent distress, alert Neurologic Exam: alert, oriented x 3, cooperative, normal mood/affect, nml cerebellar function, nml station & gait, sensation nml, No motor deficits Eye Exam: PERRL/EOMI, eyes nml inspection Ears, Nose, Throat Exam: normal ENT inspection, TMs normal, pharynx normal, moist mucous membranes Neck Exam: normal inspection, non-tender, supple, full range of motion Respiratory Exam: normal breath sounds, lungs clear, No respiratory distress Cardiovascular Exam: regular rate/rhythm, normal heart sounds, normal peripheral pulses Gastrointestinal/Abdomen Exam: soft, normal bowel sounds, No tenderness, No mass Back Exam: normal inspection, normal range of motion, No CVA tenderness, No vertebral tenderness Extremity Exam: normal inspection, normal range of motion, pelvis stable Skin Exam: normal color, warm, dry, No rash Lymphatic Exam: No adenopathy Results - Labs Lab/Micro Results: Accuchecks Accucheck Value: 118 Lab Results-Last 24 Hours 12/16/18 12/16/18 12/16/18 Range/Units 17:17 17:30 17:30 WBC 9.0 (4.0-10.5) K/mm3 RBC 4.89 (4.1-5.4) M/mm3 Hgb 14.1 (12.0-16.0) gm/dl Hct 44.4 (35-47) % MCV 90.8 (78-100) fl MCH 28.8 (26-32) pg MCHC 31.8 L (32-36) g/dl RDW 14.0 (11.5-14.0) % Plt Count 230 (150-450) K/mm3 MPV (6-9.5) fl Segmented Neutrophils 64 (36.0-66.0) % Band Neutrophils 2 (0.0-2.0) % Lymphocytes (Manual) 24 (24-44) % Monocytes (Manual) 4 (0.0-12.0) % Eosinophils (Manual) 1 (0.00-3.0) % Basophils (Manual) (0.0-1.0) % Atypical Lymphocytes 5 % Platelet Estimate NORMAL (NORMAL) RBC Morphology NORMAL Anisocytosis 1+ D-Dimer (215-500) ng/mL Sodium 141 (137-145) mmol/L Potassium 3.3 L (3.5-5.1) mmol/L Chloride 100 (98-107) mmol/L Carbon Dioxide 31 H (22-30) mmol/L Anion Gap 14.2 (5-15) MEQ/L BUN 18 H (7-17) mg/dL Creatinine 1.04 (0.52-1.04) mg/dL Estimated GFR 56.0 ML/MIN Glucose 115 H (74-106) mg/dL Hemoglobin A1c (4.5-6.0) % Lactic Acid 1.6 (0.4-2.0) Calcium 9.0 (8.4-10.2) mg/dL Total Bilirubin 0.50 (0.2-1.3) mg/dL AST 33 (14-36) U/L ALT 23 (0-35) U/L Alkaline Phosphatase 68 (38-126) U/L Troponin I < 0.012 (0.000-0.034) ng/mL NT-Pro-B Natriuret Pep 90.4 (0-900) pg/mL Serum Total Protein 7.5 (6.3-8.2) g/dL Albumin 4.0 (3.5-5.0) g/dL Lipase 83 (23-300) U/L Thyroxine (T4) 17.6 H (5.53-10.96) ug/dL TSH 3rd Generation 0.727 (0.47-4.68) mIU/L Urine Color (YELLOW) Urine Appearance (CLEAR) Urine pH (5-6) Ur Specific [place] (1.005-1.025) Urine Protein (Negative) Urine Ketones (NEGATIVE) Urine Blood (0-5) Efren/ul Urine Nitrite (NEGATIVE) Urine Bilirubin (NEGATIVE) Urine Urobilinogen (0-1) mg/dL Ur Leukocyte Esterase (NEGATIVE) Urine WBC (Auto) (0-5) /HPF Urine RBC (Auto) (0-2) /HPF U Epithel Cells (Auto) (FEW) /HPF Urine Bacteria (Auto) (NEGATIVE) /HPF Urine Mucus (Auto) (NEGATIVE) /HPF Urine Culture Reflexed (NO) Urine Glucose (NEGATIVE) mg/dL Influenza Type A Ag (NEGATIVE) Influenza Type B Ag (NEGATIVE) RSV (PCR) (Negative) 12/16/18 12/16/18 12/16/18 Range/Units 17:30 19:42 20:30 WBC (4.0-10.5) K/mm3 RBC (4.1-5.4) M/mm3 Hgb (12.0-16.0) gm/dl Hct (35-47) % MCV (78-100) fl MCH (26-32) pg MCHC (32-36) g/dl RDW (11.5-14.0) % Plt Count (150-450) K/mm3 MPV (6-9.5) fl Segmented Neutrophils (36.0-66.0) % Band Neutrophils (0.0-2.0) % Lymphocytes (Manual) (24-44) % Monocytes (Manual) (0.0-12.0) % Eosinophils (Manual) (0.00-3.0) % Basophils (Manual) (0.0-1.0) % Atypical Lymphocytes % Platelet Estimate (NORMAL) RBC Morphology Anisocytosis D-Dimer 1222 H* (215-500) ng/mL Sodium (137-145) mmol/L Potassium (3.5-5.1) mmol/L Chloride (98-107) mmol/L Carbon Dioxide (22-30) mmol/L Anion Gap (5-15) MEQ/L BUN (7-17) mg/dL Creatinine (0.52-1.04) mg/dL Estimated GFR ML/MIN Glucose (74-106) mg/dL Hemoglobin A1c (4.5-6.0) % Lactic Acid (0.4-2.0) Calcium (8.4-10.2) mg/dL Total Bilirubin (0.2-1.3) mg/dL AST (14-36) U/L ALT (0-35) U/L Alkaline Phosphatase (38-126) U/L Troponin I (0.000-0.034) ng/mL NT-Pro-B Natriuret Pep (0-900) pg/mL Serum Total Protein (6.3-8.2) g/dL Albumin (3.5-5.0) g/dL Lipase (23-300) U/L Thyroxine (T4) (5.53-10.96) ug/dL TSH 3rd Generation (0.47-4.68) mIU/L Urine Color STRAW (YELLOW) Urine Appearance CLEAR (CLEAR) Urine pH 7.0 (5-6) Ur Specific [place] 1.015 (1.005-1.025) Urine Protein NEGATIVE (Negative) Urine Ketones NEGATIVE (NEGATIVE) Urine Blood SMALL (0-5) Efren/ul Urine Nitrite POSITIVE (NEGATIVE) Urine Bilirubin NEGATIVE (NEGATIVE) Urine Urobilinogen NEGATIVE (0-1) mg/dL Ur Leukocyte Esterase LARGE (NEGATIVE) Urine WBC (Auto) 26-50 (0-5) /HPF Urine RBC (Auto) 3-5 (0-2) /HPF U Epithel Cells (Auto) NONE (FEW) /HPF Urine Bacteria (Auto) RARE (NEGATIVE) /HPF Urine Mucus (Auto) SLIGHT (NEGATIVE) /HPF Urine Culture Reflexed YES (NO) Urine Glucose NEGATIVE (NEGATIVE) mg/dL Influenza Type A Ag NEGATIVE (NEGATIVE) Influenza Type B Ag NEGATIVE (NEGATIVE) RSV (PCR) NEGATIVE (Negative) 12/16/18 12/16/18 12/17/18 Range/Units 20:44 22:38 06:00 WBC 5.8 (4.0-10.5) K/mm3 RBC 4.38 (4.1-5.4) M/mm3 Hgb 12.6 (12.0-16.0) gm/dl Hct 40.0 (35-47) % MCV 91.3 (78-100) fl MCH 28.8 (26-32) pg MCHC 31.5 L (32-36) g/dl RDW 14.0 (11.5-14.0) % Plt Count 203 (150-450) K/mm3 MPV 10.1 H (6-9.5) fl Segmented Neutrophils 63 (36.0-66.0) % Band Neutrophils 1 (0.0-2.0) % Lymphocytes (Manual) 29 (24-44) % Monocytes (Manual) 4 (0.0-12.0) % Eosinophils (Manual) 1 (0.00-3.0) % Basophils (Manual) 2 H (0.0-1.0) % Atypical Lymphocytes % Platelet Estimate NORMAL (NORMAL) RBC Morphology NORMAL Anisocytosis D-Dimer (215-500) ng/mL Sodium (137-145) mmol/L Potassium (3.5-5.1) mmol/L Chloride (98-107) mmol/L Carbon Dioxide (22-30) mmol/L Anion Gap (5-15) MEQ/L BUN (7-17) mg/dL Creatinine (0.52-1.04) mg/dL Estimated GFR ML/MIN Glucose (74-106) mg/dL Hemoglobin A1c (4.5-6.0) % Lactic Acid (0.4-2.0) Calcium (8.4-10.2) mg/dL Total Bilirubin (0.2-1.3) mg/dL AST (14-36) U/L ALT (0-35) U/L Alkaline Phosphatase (38-126) U/L Troponin I < 0.012 (0.000-0.034) ng/mL NT-Pro-B Natriuret Pep (0-900) pg/mL Serum Total Protein (6.3-8.2) g/dL Albumin (3.5-5.0) g/dL Lipase (23-300) U/L Thyroxine (T4) 16.8 H (5.53-10.96) ug/dL TSH 3rd Generation (0.47-4.68) mIU/L Urine Color (YELLOW) Urine Appearance (CLEAR) Urine pH (5-6) Ur Specific [place] (1.005-1.025) Urine Protein (Negative) Urine Ketones (NEGATIVE) Urine Blood (0-5) Efren/ul Urine Nitrite (NEGATIVE) Urine Bilirubin (NEGATIVE) Urine Urobilinogen (0-1) mg/dL Ur Leukocyte Esterase (NEGATIVE) Urine WBC (Auto) (0-5) /HPF Urine RBC (Auto) (0-2) /HPF U Epithel Cells (Auto) (FEW) /HPF Urine Bacteria (Auto) (NEGATIVE) /HPF Urine Mucus (Auto) (NEGATIVE) /HPF Urine Culture Reflexed (NO) Urine Glucose (NEGATIVE) mg/dL Influenza Type A Ag (NEGATIVE) Influenza Type B Ag (NEGATIVE) RSV (PCR) (Negative) 12/17/18 12/17/18 Range/Units 06:00 06:00 WBC (4.0-10.5) K/mm3 RBC (4.1-5.4) M/mm3 Hgb (12.0-16.0) gm/dl Hct (35-47) % MCV (78-100) fl MCH (26-32) pg MCHC (32-36) g/dl RDW (11.5-14.0) % Plt Count (150-450) K/mm3 MPV (6-9.5) fl Segmented Neutrophils (36.0-66.0) % Band Neutrophils (0.0-2.0) % Lymphocytes (Manual) (24-44) % Monocytes (Manual) (0.0-12.0) % Eosinophils (Manual) (0.00-3.0) % Basophils (Manual) (0.0-1.0) % Atypical Lymphocytes % Platelet Estimate (NORMAL) RBC Morphology Anisocytosis D-Dimer (215-500) ng/mL Sodium 136 L (137-145) mmol/L Potassium 4.1 D (3.5-5.1) mmol/L Chloride 101 (98-107) mmol/L Carbon Dioxide 31 H (22-30) mmol/L Anion Gap 8.7 (5-15) MEQ/L BUN 17 (7-17) mg/dL Creatinine 0.90 (0.52-1.04) mg/dL Estimated GFR > 60.0 ML/MIN Glucose 114 H (74-106) mg/dL Hemoglobin A1c 5.28 (4.5-6.0) % Lactic Acid (0.4-2.0) Calcium 8.2 L (8.4-10.2) mg/dL Total Bilirubin 0.40 (0.2-1.3) mg/dL AST 32 (14-36) U/L ALT 21 (0-35) U/L Alkaline Phosphatase 57 (38-126) U/L Troponin I (0.000-0.034) ng/mL NT-Pro-B Natriuret Pep (0-900) pg/mL Serum Total Protein 6.5 (6.3-8.2) g/dL Albumin 3.2 L (3.5-5.0) g/dL Lipase (23-300) U/L Thyroxine (T4) (5.53-10.96) ug/dL TSH 3rd Generation (0.47-4.68) mIU/L Urine Color (YELLOW) Urine Appearance (CLEAR) Urine pH (5-6) Ur Specific [place] (1.005-1.025) Urine Protein (Negative) Urine Ketones (NEGATIVE) Urine Blood (0-5) Efren/ul Urine Nitrite (NEGATIVE) Urine Bilirubin (NEGATIVE) Urine Urobilinogen (0-1) mg/dL Ur Leukocyte Esterase (NEGATIVE) Urine WBC (Auto) (0-5) /HPF Urine RBC (Auto) (0-2) /HPF U Epithel Cells (Auto) (FEW) /HPF Urine Bacteria (Auto) (NEGATIVE) /HPF Urine Mucus (Auto) (NEGATIVE) /HPF Urine Culture Reflexed (NO) Urine Glucose (NEGATIVE) mg/dL Influenza Type A Ag (NEGATIVE) Influenza Type B Ag (NEGATIVE) RSV (PCR) (Negative) Accuchecks Accucheck Value: 118 - Radiology Impressions Radiology Exams & Impressions: Radiology Procedures Category Date Time Status CHEST 2 VIEWS (PA AND LAT) Stat Exams 12/16/18 17:18 Completed CHEST WITH CONTRAST [CT] Stat Exams 12/16/18 17:50 Completed HEAD WITHOUT CONTRAST [CT] Stat Exams 12/16/18 17:21 Completed HIPS BENNETT(2V) INCL PEL IF DONE Stat Exams 12/16/18 17:25 Completed KNEE (1 OR 2 VIEW) Stat Exams 12/16/18 21:21 Taken LUMBAR LIMITED (2 OR 3 VIEWS) Stat Exams 12/16/18 17:24 Completed THORACIC SPINE (AP,LAT,SWIMM) Stat Exams 12/16/18 17:24 Completed Assessment/Plan (1) Hypokalemia Current Visit: Yes Status: Resolved Assessment & Plan: Last Vital Signs Temp 98.2 F 12/17/18 08:00 Pulse 69 12/17/18 08:00 Resp 18 12/17/18 08:00 BP 133/57 12/17/18 08:00 Pulse Ox 94 L 12/17/18 08:00 Allergies amoxicillin Allergy (Verified 12/16/18 17:11) Swelling of Tongue and Lips pregabalin [From Lyrica] Allergy (Verified 12/16/18 17:11) swelling morphine Adverse Reaction (Severe, Verified 12/16/18 17:11) Difficulty Breathing Active Medications Acetaminophen (Tylenol Extra Strength 500 Mg) 500 mg PO TID [facility] Stop: 01/16/19 09:59 Enoxaparin Sodium (Enoxaparin Sodium) 40 mg SQ DAILY [facility] Stop: 01/16/19 09:59 Sodium Chloride (Sodium Chloride 0.9% 1000 Ml) 1,000 mls @ 100 mls/hr IV .Q10H [facility] Stop: 01/15/19 22:33 Last Admin: 12/17/18 06:46 Dose: 100 mls/hr Insulin Human Regular (Novolin R) 0 unit SQ UD PRN PRN Reason: HYPERGLYCEMIA Stop: 01/15/19 22:33 Ondansetron HCl (Zofran 4 Mg/2 Ml Vial) 4 mg IV Q6H PRN PRN PRN Reason: NAUSEA/VOMITING Stop: 01/15/19 22:33 Tramadol HCl (Ultram 50 Mg) 50 mg PO TID [facility] Stop: 01/16/19 09:59 Intake & Output 12/16/18 12/17/18 11:59 11:59 Intake Total 240 Balance 240 Weight 128.367 kg Orders 12/17/18 00:25 Infection Control Consult ROUTINE OT Screen per Nursing Assess ONCE 12/17/18 10:00 Acetaminophen 500 mg [Tylenol Extra Strength 500 mg] 500 mg PO TID Enoxaparin Sodium [Enoxaparin Sodium] 40 mg SQ DAILY Tramadol HCl 50 mg [Ultram 50 mg] 50 mg PO TID Lab Tests 12/16/18 12/16/18 12/16/18 17:17 17:30 17:30 WBC 9.0 RBC 4.89 Hgb 14.1 Hct 44.4 MCV 90.8 MCH 28.8 MCHC 31.8 L RDW 14.0 Plt Count 230 MPV Segmented Neutrophils 64 Band Neutrophils 2 Lymphocytes (Manual) 24 Monocytes (Manual) 4 Eosinophils (Manual) 1 Basophils (Manual) Atypical Lymphocytes 5 Platelet Estimate NORMAL RBC Morphology NORMAL Anisocytosis 1+ D-Dimer Sodium 141 Potassium 3.3 L Chloride 100 Carbon Dioxide 31 H Anion Gap 14.2 BUN 18 H Creatinine 1.04 Estimated GFR 56.0 Glucose 115 H Hemoglobin A1c Lactic Acid 1.6 Calcium 9.0 Total Bilirubin 0.50 AST 33 ALT 23 Alkaline Phosphatase 68 Troponin I < 0.012 NT-Pro-B Natriuret Pep 90.4 Serum Total Protein 7.5 Albumin 4.0 Lipase 83 Thyroxine (T4) 17.6 H TSH 3rd Generation 0.727 Urine Color Urine Appearance Urine pH Ur Specific [place] Urine Protein Urine Ketones Urine Blood Urine Nitrite Urine Bilirubin Urine Urobilinogen Ur Leukocyte Esterase Urine WBC (Auto) Urine RBC (Auto) U Epithel Cells (Auto) Urine Bacteria (Auto) Urine Mucus (Auto) Urine Culture Reflexed Urine Glucose Influenza Type A Ag Influenza Type B Ag RSV (PCR) 12/16/18 12/16/18 12/16/18 17:30 19:42 20:30 WBC RBC Hgb Hct MCV MCH MCHC RDW Plt Count MPV Segmented Neutrophils Band Neutrophils Lymphocytes (Manual) Monocytes (Manual) Eosinophils (Manual) Basophils (Manual) Atypical Lymphocytes Platelet Estimate RBC Morphology Anisocytosis D-Dimer 1222 H* Sodium Potassium Chloride Carbon Dioxide Anion Gap BUN Creatinine Estimated GFR Glucose Hemoglobin A1c Lactic Acid Calcium Total Bilirubin AST ALT Alkaline Phosphatase Troponin I NT-Pro-B Natriuret Pep Serum Total Protein Albumin Lipase Thyroxine (T4) TSH 3rd Generation Urine Color STRAW Urine Appearance CLEAR Urine pH 7.0 Ur Specific [place] 1.015 Urine Protein NEGATIVE Urine Ketones NEGATIVE Urine Blood SMALL Urine Nitrite POSITIVE Urine Bilirubin NEGATIVE Urine Urobilinogen NEGATIVE Ur Leukocyte Esterase LARGE Urine WBC (Auto) 26-50 Urine RBC (Auto) 3-5 U Epithel Cells (Auto) NONE Urine Bacteria (Auto) RARE Urine Mucus (Auto) SLIGHT Urine Culture Reflexed YES Urine Glucose NEGATIVE Influenza Type A Ag NEGATIVE Influenza Type B Ag NEGATIVE RSV (PCR) NEGATIVE 12/16/18 12/16/18 12/17/18 20:44 22:38 06:00 WBC 5.8 RBC 4.38 Hgb 12.6 Hct 40.0 MCV 91.3 MCH 28.8 MCHC 31.5 L RDW 14.0 Plt Count 203 MPV 10.1 H Segmented Neutrophils 63 Band Neutrophils 1 Lymphocytes (Manual) 29 Monocytes (Manual) 4 Eosinophils (Manual) 1 Basophils (Manual) 2 H Atypical Lymphocytes Platelet Estimate NORMAL RBC Morphology NORMAL Anisocytosis D-Dimer Sodium Potassium Chloride Carbon Dioxide Anion Gap BUN Creatinine Estimated GFR Glucose Hemoglobin A1c Lactic Acid Calcium Total Bilirubin AST ALT Alkaline Phosphatase Troponin I < 0.012 NT-Pro-B Natriuret Pep Serum Total Protein Albumin Lipase Thyroxine (T4) 16.8 H TSH 3rd Generation Urine Color Urine Appearance Urine pH Ur Specific [place] Urine Protein Urine Ketones Urine Blood Urine Nitrite Urine Bilirubin Urine Urobilinogen Ur Leukocyte Esterase Urine WBC (Auto) Urine RBC (Auto) U Epithel Cells (Auto) Urine Bacteria (Auto) Urine Mucus (Auto) Urine Culture Reflexed Urine Glucose Influenza Type A Ag Influenza Type B Ag RSV (PCR) 12/17/18 12/17/18 06:00 06:00 WBC RBC Hgb Hct MCV MCH MCHC RDW Plt Count MPV Segmented Neutrophils Band Neutrophils Lymphocytes (Manual) Monocytes (Manual) Eosinophils (Manual) Basophils (Manual) Atypical Lymphocytes Platelet Estimate RBC Morphology Anisocytosis D-Dimer Sodium 136 L Potassium 4.1 D Chloride 101 Carbon Dioxide 31 H Anion Gap 8.7 BUN 17 Creatinine 0.90 Estimated GFR > 60.0 Glucose 114 H Hemoglobin A1c 5.28 Lactic Acid Calcium 8.2 L Total Bilirubin 0.40 AST 32 ALT 21 Alkaline Phosphatase 57 Troponin I NT-Pro-B Natriuret Pep Serum Total Protein 6.5 Albumin 3.2 L Lipase Thyroxine (T4) TSH 3rd Generation Urine Color Urine Appearance Urine pH Ur Specific [place] Urine Protein Urine Ketones Urine Blood Urine Nitrite Urine Bilirubin Urine Urobilinogen Ur Leukocyte Esterase Urine WBC (Auto) Urine RBC (Auto) U Epithel Cells (Auto) Urine Bacteria (Auto) Urine Mucus (Auto) Urine Culture Reflexed Urine Glucose Influenza Type A Ag Influenza Type B Ag RSV (PCR) Code(s): E87.6 - HYPOKALEMIA (2) UTI (urinary tract infection) Current Visit: Yes Status: Acute Qualifiers: Urinary tract infection type: acute pyelonephritis Qualified Code(s): N10 - Acute pyelonephritis Code(s): N39.0 - URINARY TRACT INFECTION, SITE NOT SPECIFIED (3) Weakness generalized Current Visit: Yes Status: Acute Code(s): R53.1 - WEAKNESS (4) Dehydration Current Visit: No Status: Acute Code(s): E86.0 - DEHYDRATION (5) Diabetes mellitus Current Visit: Yes Status: Chronic Qualifiers: Diabetes mellitus type: type 2 Diabetes mellitus complication status: with kidney complications Diabetes mellitus complication detail: with chronic kidney disease Chronic kidney disease stage: stage 3 (moderate) Code(s): E11.9 - TYPE 2 DIABETES MELLITUS WITHOUT COMPLICATIONS (6) Hypertension Current Visit: Yes Status: Chronic Qualifiers: Hypertension type: essential hypertension Qualified Code(s): I10 - Essential (primary) hypertension Code(s): I10 - ESSENTIAL (PRIMARY) HYPERTENSION (7) Obesity, Class III, BMI 40-49.9 (morbid obesity) Current Visit: Yes Status: Chronic Code(s): E66.01 - MORBID (SEVERE) OBESITY DUE TO EXCESS CALORIES
[2018-12-17] MEDS ORDERED: NON-FORMULARY ITEM (Ondansetron Hcl [Zofran] 4 MG) PO PRN (09:17)
[2018-12-17] MEDS ORDERED: ZOFRAN ODT 4 MG PO PRN (09:21)
--- NOTE | 2018-12-17 09:44 | XRAY ---
Indication: Pain. Comparison: December 22, 2007. Portable AP/crosstable lateral left knee again demonstrates osteopenia, minimal tricompartmental degenerative changes, and proximal lower leg soft tissue calcified granulomas. No new/acute findings.
[2018-12-17] MEDS ORDERED: ULTRAM 50 MG PO SCH (10:00)
[2018-12-17] MEDS: TYLENOL EXTRA STRENGTH 500 MG PO SCH ×3 (10:00→23:04)
[2018-12-17] MEDS: Zestril 10 MG PO SCH ×2 (10:00→23:05)
[2018-12-17] MEDS: Ditropan 5 MG PO SCH ×2 (10:01→23:04)
[2018-12-17] MEDS: Klor Con 10 MEQ PO SCH (10:01)
[2018-12-17] MEDS: ZOLOFT 50 MG TABLET PO SCH (10:01)
[2018-12-17] MEDS: ULTRAM 50 MG PO SCH ×3 (10:01→23:04)
[2018-12-17] MEDS: ENOXAPARIN SODIUM SQ SCH (10:02)
[2018-12-17] MEDS: LASIX 20 MG PO SCH (10:06)
[2018-12-18] MEDS: Sodium Chloride 0.9% 1000 ML 1,000 ML IV SCH (03:38)
[2018-12-18 07:10] VITALS: O2SAT 96
[2018-12-18] MEDS: Ditropan 5 MG PO SCH (09:47)
[2018-12-18] MEDS: ENOXAPARIN SODIUM SQ SCH (09:47)
[2018-12-18] MEDS: Zestril 10 MG PO SCH (09:47)
[2018-12-18] MEDS: LASIX 20 MG PO SCH (09:47)
[2018-12-18] MEDS: ULTRAM 50 MG PO SCH (09:47)
[2018-12-18] MEDS: ZOLOFT 50 MG TABLET PO SCH (09:47)
[2018-12-18] MEDS: TYLENOL EXTRA STRENGTH 500 MG PO SCH (09:47)
[2018-12-18] MEDS: Klor Con 10 MEQ PO SCH (09:47)
[2018-12-18 11:08] VITALS: BP 137/70; PULSE 62
--- NOTE | 2018-12-18 12:42 | PCM.DS ---
Discharge Summary Date of Admission: 12/16/18 22:20 Admitting Physician: TASHI NEVAREZ Primary Care Provider: TASHI NEVAREZ Allergies Allergies amoxicillin Allergy (Verified 12/16/18 17:11) Swelling of Tongue and Lips pregabalin [From Lyrica] Allergy (Verified 12/16/18 17:11) swelling morphine Adverse Reaction (Severe, Verified 12/16/18 17:11) Difficulty Breathing Hospital Summary - Hospital Course Hospital Course: Last Vital Signs Temp 97.7 F 12/18/18 11:07 Pulse 62 12/18/18 11:07 Resp 20 12/18/18 11:07 BP 137/70 12/18/18 11:07 Pulse Ox 96 12/18/18 11:07 Allergies amoxicillin Allergy (Verified 12/16/18 17:11) Swelling of Tongue and Lips pregabalin [From Lyrica] Allergy (Verified 12/16/18 17:11) swelling morphine Adverse Reaction (Severe, Verified 12/16/18 17:11) Difficulty Breathing Active Medications Acetaminophen (Tylenol Extra Strength 500 Mg) 500 mg PO TID LATONYA Stop: 01/16/19 09:59 Last Admin: 12/18/18 09:47 Dose: 500 mg Enoxaparin Sodium (Enoxaparin Sodium) 40 mg SQ DAILY LATONYA Stop: 01/16/19 09:59 Last Admin: 12/18/18 09:47 Dose: 40 mg Furosemide (Lasix 20 Mg) 20 mg PO DAILY LATONYA Stop: 01/16/19 09:59 Last Admin: 12/18/18 09:47 Dose: 20 mg Sodium Chloride (Sodium Chloride 0.9% 1000 Ml) 1,000 mls @ 100 mls/hr IV .Q10H LATONYA Stop: 01/15/19 22:33 Last Admin: 12/18/18 03:38 Dose: 100 mls/hr Insulin Human Regular (Novolin R) 0 unit SQ UD PRN PRN Reason: HYPERGLYCEMIA Stop: 01/15/19 22:33 Lisinopril (Zestril 10 Mg) 10 mg PO BID LATONYA Stop: 01/16/19 09:59 Last Admin: 12/18/18 09:47 Dose: 10 mg Ondansetron HCl (Zofran 4 Mg/2 Ml Vial) 4 mg IV Q6H PRN PRN PRN Reason: NAUSEA/VOMITING Stop: 01/15/19 22:33 Ondansetron HCl (Zofran Odt 4 Mg) 4 mg PO Q8H PRN PRN PRN Reason: NAUSEA Stop: 01/16/19 09:20 Last Admin: 12/18/18 10:56 Dose: 4 mg Oxybutynin Chloride (Ditropan 5 Mg) 5 mg PO BID [facility] Stop: 01/16/19 09:59 Last Admin: 12/18/18 09:47 Dose: 5 mg Potassium Chloride (Klor Con 10 Meq) 10 meq PO DAILY [facility] Stop: 01/16/19 09:59 Last Admin: 12/18/18 09:47 Dose: 10 meq Sertraline HCl (Zoloft 50 Mg Tablet) 50 mg PO DAILY [facility] Stop: 01/16/19 09:59 Last Admin: 12/18/18 09:47 Dose: 50 mg Tramadol HCl (Ultram 50 Mg) 50 mg PO TID [facility] Stop: 01/16/19 09:59 Last Admin: 12/18/18 09:47 Dose: 50 mg Intake & Output 12/18/18 12/19/18 11:59 11:59 Intake Total 1904 Balance 1904 Weight 131.2 kg Microbiology 12/16/18 19:42 Urine, Void Urine Culture - Preliminary GRAM NEGATIVE ID AND SENSITIVITY PENDING - Vitals & Intake/Output Vital Signs: Vital Signs Temperature 97.7 F 12/18/18 11:07 Pulse Rate 62 12/18/18 11:07 Respiratory Rate 20 12/18/18 11:07 Blood Pressure 137/70 12/18/18 11:07 O2 Sat by Pulse Oximetry 96 12/18/18 11:07 Intake & Output: Intake & Output 12/16/18 12/17/18 12/18/18 12/19/18 11:59 11:59 11:59 11:59 Intake Total 240 1904 Balance 240 1904 Weight 128.367 kg 131.2 kg - Lab Result Diagrams: 12/17/18 06:00 12/17/18 06:00 Lab Results-Last 24 Hrs: Accuchecks Date 12/18/18 Date 12/18/18 Time 07:30 Time 21:30 Accucheck Value: 90 Accucheck Value: 102 Accucheck Value: 91 Micro Results-Entire Visit: Microbiology 12/16/18 19:42 Urine Culture - Preliminary Urine, Void GRAM NEGATIVE ID AND SENSITIVITY PENDING Accuchecks Date 12/18/18 Date 12/18/18 Time 07:30 Time 21:30 Accucheck Value: 90 Accucheck Value: 102 Accucheck Value: 91 - Radiology Exams Ordered Rad Exams-Entire Visit: Radiology Procedures Category Date Time Status CHEST 2 VIEWS (PA AND LAT) Stat Exams 12/16/18 17:18 Completed CHEST WITH CONTRAST [CT] Stat Exams 12/16/18 17:50 Completed HEAD WITHOUT CONTRAST [CT] Stat Exams 12/16/18 17:21 Completed HIPS BENNETT(2V) INCL PEL IF DONE Stat Exams 12/16/18 17:25 Completed KNEE (1 OR 2 VIEW) Stat Exams 12/16/18 21:21 Completed LUMBAR LIMITED (2 OR 3 VIEWS) Stat Exams 12/16/18 17:24 Completed THORACIC SPINE (AP,LAT,SWIMM) Stat Exams 12/16/18 17:24 Completed - Procedures and Test Procedures and Tests throughout Hospitalization: Therapy Orders & Screens 12/17/18 00:25 OT Screen per Nursing Assess Comment: Protocol Order Physician Instructions: Greater than 3 points order OT Admission Screening Reason For Exam: Triggered on Admission Diagnosis: general weakness, hyperthyroid lab result, UTI, Hypokalemia Open Wound/Cellutlitis/Pressure Ulcers: No Acute Fx/ORIF/Change in wt bearing status: Yes: cannot stand tonight Severe MUSCULOSKELETAL pain: Yes: lle pain ADL Dysfunction: Yes Acute CVA w/Hemiparesis/Hemiplegia: No Decreased Functional Mobility/Strength: Yes Sprain/Strain: No Acute Post-op Mobility Dysfunction: No Total Points: 14 Discharge Exam General Appearance: no apparent distress, alert Neurologic Exam: alert, oriented x 3, cooperative, normal mood/affect, nml cerebellar function, sensation nml, No motor deficits Skin Exam: normal color, warm, dry Eye Exam: PERRL, EOMI, eyes nml inspection Ears, Nose, Throat Exam: normal ENT inspection, pharynx normal, moist mucous membranes Neck Exam: normal inspection, non-tender, supple, full range of motion Respiratory Exam: normal breath sounds, lungs clear, No respiratory distress Cardiovascular Exam: regular rate/rhythm, normal heart sounds Gastrointestinal/Abdomen Exam: soft, No tenderness, No mass Extremity Exam: normal inspection, normal range of motion Back Exam: normal inspection, normal range of motion, No CVA tenderness, No vertebral tenderness Pelvic Exam: deferred Rectal Exam: deferred Final Diagnosis/Problem List - Final Discharge Diagnosis/Problem (1) UTI (urinary tract infection) Current Visit: Yes Status: Acute Assessment & Plan: will send her home with cipro 500 mg po bid for 5 days Code(s): N39.0 - URINARY TRACT INFECTION, SITE NOT SPECIFIED (2) Hypokalemia Current Visit: Yes Status: Resolved Code(s): E87.6 - HYPOKALEMIA (3) Weakness generalized Current Visit: Yes Status: Acute Code(s): R53.1 - WEAKNESS (4) Dehydration Current Visit: No Status: Acute Code(s): E86.0 - DEHYDRATION (5) Diabetes mellitus Current Visit: Yes Status: Chronic Code(s): E11.9 - TYPE 2 DIABETES MELLITUS WITHOUT COMPLICATIONS (6) Hypertension Current Visit: Yes Status: Chronic Code(s): I10 - ESSENTIAL (PRIMARY) HYPERTENSION (7) Obesity, Class III, BMI 40-49.9 (morbid obesity) Current Visit: Yes Status: Chronic Code(s): E66.01 - MORBID (SEVERE) OBESITY DUE TO EXCESS CALORIES - Discharge Discharge Date: 12/18/18 Disposition: Home, Self-Care Condition: Good Prescriptions: New Ciprofloxacin [Cipro 500 MG] 500 mg PO BID #10 tablet Continue Potassium Chloride 10 Meq Tab* [Klor Con 10 MEQ] 10 meq PO DAILY Furosemide [Lasix] 20 mg PO DAILY Lisinopril 10 mg [Zestril 10 MG] 10 mg PO BID Ondansetron HCl [Zofran] 4 mg PO Q8HPRN PRN PRN Reason: Nausea Fesoterodine Fumarate [Toviaz] 8 mg DAILY Sertraline HCl 50 mg DAILY Tramadol HCl 50 mg [Ultram 50 mg] 50 mg BID Follow up with: TASHI NEVAREZ MD [Primary Care Provider] - 1 Week
== END 2018-12-18 13:25 | disposition home or self-care (01) ==
LOC: ED 17:02 → MED SURG 22:20
PROVIDERS: ADMIT General Practice; ATTEND General Practice
DX: N39.0 Urinary tract infection, site not specified (principal); E87.6 Hypokalemia; R53.1 Weakness; E86.0 Dehydration; E11.9 Type 2 diabetes mellitus without complications; I10 Essential (primary) hypertension; R42 Dizziness and giddiness; E66.01 Morbid (severe) obesity due to excess calories; Z68.41 Body mass index [BMI] 40.0-44.9, adult; Z79.899 Other long term (current) drug therapy; M25.559 Pain in unspecified hip; W19.XXXA Unspecified fall, initial encounter
CPT/HCPCS: 36000; 36415; 70450; 71046; 71260; 72072; 72100; 73521; 73560; 80053; 81001; 82962; 83036; 83605; 83690; 83880; 84436; 84443; 84484; 85025; 85379; 87077; 87086; 87186; 87631; 93005; 93268; 99285; G0378; J1650; J3480; Q0162; A9270-GY

== ENCOUNTER 2020-10-11 00:17 | Observation (INO) | payer MEDICARE ==
[2020-10-11] MEDS ORDERED: Sodium Chloride 0.9% 1000 ML 1,000 ML ONE ×2 (00:26→04:28)
[2020-10-11] MEDS ORDERED: Zofran 4 MG/2 ML VIAL ONE (00:26)
[2020-10-11] MEDS ORDERED: Zofran 4 MG/2 ML VIAL IV ONE ×2 (00:33)
[2020-10-11] MEDS ORDERED: Sodium Chloride 0.9% 1000 ML 1,000 ML IV STA ×2 (00:33)
[2020-10-11] MEDS ORDERED: Hydromorphone 1 mg/ml Injection IV ONE (00:33)
[2020-10-11] MEDS ORDERED: Hydromorphone 1 mg/ml Injection ONE (00:37)
--- NOTE | 2020-10-11 00:37 | ERPHSYRPT ---
- History of Present Illness Time Seen by Provider: 10/11/20 00:26 Historian: patient, EMS Exam Limitations: no limitations Patient Subjective Stated Complaint: Pt began having diarrhea 10/10/20, then N/V began today Triage Nursing Assessment: Pt pale, loose skin. A/O X 3. Vomiting. Lung sounds clear throughout. Bowel sounds present x 4 quads. Umbilical hernia present. Chronic gagnon catheter in place. Urine yellow and cloudy. Physician History: 70 years old female presented in the ER with chief complaint of generalized abdominal pain started onset yesterday around 330 with multiple episodes of nonprojectile, nonbilious vomiting with no hematemesis. She also report multiple episodes of loose watery discharge stool. Pain is moderate intensity more in the upper abdomen aggravated with movement palpation and no significant relieving factors. She is unable to hold anything down. She is feeling fatigued tired and dehydrated. Timing/Duration: yesterday, sudden, worse Activities at Onset: rest Quality: cramping, sharpness Abdominal Pain Onset Location: LLQ, epigastric, periumbilical Pain Radiation: no radiation Severity of Pain-Max: moderate Severity of Pain-Current: moderate Modifying Factors: Worsens With: movement, palpation, vomiting Associated Symptoms: diarrhea, fatigue, vomiting, weakness, No fever/chills Allergies/Adverse Reactions: amoxicillin Allergy (Verified 10/11/20 07:37) Swelling of Tongue and Lips pregabalin [From Lyrica] Allergy (Verified 10/11/20 07:37) swelling morphine Adverse Reaction (Severe, Verified 10/11/20 07:37) Difficulty Breathing Home Medications: Furosemide [Lasix] 20 mg PO DAILY 02/18/16 [History] Ondansetron HCl [Zofran] 8 mg PO Q6H PRN 10/05/16 [History] Fesoterodine Fumarate [Toviaz] 8 mg PO DAILY 12/16/18 [History] Acetaminophen 325 mg [Tylenol 325 mg] 650 mg PO Q6H PRN 10/11/20 [History] Aspirin EC 81 mg [Ecotrin 81 mg] 1 tab PO DAILY 10/11/20 [History] Bupropion HCl Xl 150 mg [Wellbutrin XL 150 MG] 300 mg PO DAILY 10/11/20 [History] Diphenhydramine HCl 25 mg [Benadryl 25 mg Capsule] 25 mg PO Q6H PRN PRN 10/11/20 [History] Famotidine 20 mg [Pepcid 20 MG] 20 mg PO BID 10/11/20 [History] Ketotifen Fumarate [Refresh] 1 drop OP DAILY 10/11/20 [History] Magnesium Hydroxide 30 ml [Milk of Magnesia 30 ml] 30 ml PO DAILY PRN 10/11/20 [History] Menthol/Zinc Oxide [Calmoseptine Ointment] 1 applic TOP BID 10/11/20 [History] Nystatin 100,000 units TOP DAILY 10/11/20 [History] Polyethylene Glycol 3350 17 gm [Miralax Powder 17GM PACKET] 17 g PO DAILY 10/11/20 [History] Trazodone HCl 50 mg [Desyrel 50 mg] 1 tab PO QHS 10/11/20 [History] Hx Tetanus, Diphtheria Vaccination/Date Given: Yes Hx Influenza Vaccination/Date Given: Yes Hx Pneumococcal Vaccination/Date Given: Yes Immunizations Up to Date: Yes Travel Risk - International Travel Have you traveled outside of the country in past 3 weeks: No - Coronavirus Screening Are you exhibiting any of the following symptoms?: Yes Symptoms: Vomiting/Diarrhea, Headaches/Body Aches/Fatigue Close contact with a COVID-19 positive Pt in past 14-21 Days: No - Review of Systems Constitutional: Fatigue, Weakness Eyes: No Symptoms Ears, Nose, & Throat: No Symptoms Respiratory: No Symptoms Cardiac: No Symptoms Abdominal/Gastrointestinal: Abdominal Pain, Nausea, Vomiting, Diarrhea Genitourinary Symptoms: No Symptoms Musculoskeletal: No Symptoms Skin: No Symptoms Neurological: No Symptoms Psychological: No Symptoms Endocrine: No Symptoms Hematologic/Lymphatic: No Symptoms Immunological/Allergic: No Symptoms - Past Medical History Pertinent Past Medical History: Yes Neurological History: Peripheral Neuropathy, TIA ENT History: Other Cardiac History: Hypertension Respiratory History: COPD, Sleep Apnea Endocrine Medical History: Diabetes Type II Musculoskeletal History: Arthritis GI Medical History: GERD, Other History: Other Psycho-Social History: Anxiety, Depression Female Reproductive Disorders: No Pertinent History Other Medical History: bladder incontinence hysterectomy and gall bladder removed, dry eyes - Past Surgical History Past Surgical History: Yes Neuro Surgical History: No Pertinent History Cardiac: No Pertinent History Respiratory: No Pertinent History Gastrointestinal: Cholecystectomy, Colon Resection Genitourinary: No Pertinent History Musculoskeletal: No Pertinent History Female Surgical History: Hysterectomy, Tubal Ligation - Social History Smoking Status: Former smoker Exposure to second hand smoke: No Drug Use: none Patient Lives Alone: No - Nursing Vital Signs Nursing Vital Signs: Initial Vital Signs Temperature 99.1 F 10/11/20 00:19 Pulse Rate 104 H 10/11/20 00:19 Respiratory Rate 20 10/11/20 00:19 Blood Pressure 137/94 10/11/20 00:19 O2 Sat by Pulse Oximetry 98 10/11/20 00:19 Pain Scale Pain Intensity 0 - Physical Exam General Appearance: no apparent distress Eye Exam: eyes nml inspection Ears, Nose, Throat Exam: normal ENT inspection, pharynx normal Neck Exam: normal inspection, non-tender, supple, full range of motion Respiratory Exam: normal breath sounds, lungs clear, accessory muscle use Cardiovascular Exam: normal heart sounds, tachycardia Gastrointestinal/Abdomen Exam: soft, normal bowel sounds, tenderness (Generalized abdomen more in the periumbilical area) Back Exam: normal inspection Extremity Exam: normal range of motion, pelvis stable Neurologic Exam: alert, oriented x 3, cooperative Skin Exam: normal color SpO2 Interpretation: normal SpO2: 98 O2 Delivery: Room Air Ordered Tests: Active Orders 24 hr Category Date Time Status CBC W DIFF AM.LAB Lab 10/12/20 05:53 Completed CMP AM.LAB Lab 10/12/20 05:53 Completed Medication Summary Generic Name Dose Route Start Last Admin Trade Name Freq PRN Reason Stop Dose Admin Acetaminophen 650 mg 10/11/20 07:30 Tylenol 325 Mg PO 11/10/20 07:29 Q4H PRN PRN PAIN AND/OR FEVER Albuterol Sulfate 4 puff 10/11/20 07:30 Ventolin Common Canister IH 11/10/20 07:29 Q4H PRN PRN SHORTNESS OF BREATH/WHEEZING Artificial Tears 1 ml 10/12/20 10:00 10/12/20 09:33 Artificial Tears 15 Ml OP 11/11/20 09:59 1 ml DAILY LATONYA Administration Aspirin 81 mg 10/11/20 11:30 10/12/20 09:33 Ecotrin 81 Mg PO 11/10/20 11:29 81 mg DAILY LATONYA Administration Bupropion HCl 300 mg 10/11/20 12:00 10/12/20 09:36 Wellbutrin Xl 150 Mg PO 11/10/20 11:59 300 mg DAILY LATONYA Administration Famotidine 20 mg 10/11/20 12:00 10/12/20 09:33 Pepcid 20 Mg PO 11/10/20 11:59 20 mg BID LATONYA Administration Sodium Chloride 1,000 mls @ 100 mls/hr 10/11/20 04:15 10/12/20 10:28 Sodium Chloride 0.9% 1000 Ml IV 11/10/20 04:14 100 mls/hr .Q10H LATONYA Infusion Levofloxacin/Dextrose 500 mg in 100 mls @ 100 mls/hr 10/12/20 10:00 10/12/20 09:34 Levofloxacin 500mg/100ml D5w IV 11/11/20 09:59 100 mls/hr Q24H10 LATONYA Administration Insulin Human Lispro 0 unit 10/11/20 07:30 Humalog SQ 11/10/20 07:29 UD PRN HYPERGLYCEMIA Non-Formulary Medication 0 applic 10/11/20 22:00 10/12/20 10:27 Menthol/Zinc Oxide [Calmoseptine Ointment] TOP 11/10/20 21:59 Not Given BID LATONYA Nystatin 0 gm 10/12/20 10:00 10/12/20 09:34 Nystop Powder 15 Gm TOP 11/11/20 09:59 1 gm DAILY LATONYA Administration Ondansetron HCl 4 mg 10/11/20 07:30 10/12/20 07:35 Zofran 4 Mg/2 Ml Vial IV 11/10/20 07:29 4 mg Q6H PRN PRN Administration NAUSEA/VOMITING Pantoprazole Sodium 40 mg 10/11/20 10:00 10/12/20 09:35 Protonix 40 Mg Iv IV 11/10/20 09:59 40 mg Q24H10 LATONYA Administration Trazodone HCl 50 mg 10/11/20 22:00 10/11/20 22:49 Desyrel 50 Mg PO 11/10/20 21:59 50 mg QHS LATONYA Administration Discontinued Medications Generic Name Dose Route Start Last Admin Trade Name Freq PRN Reason Stop Dose Admin Enoxaparin Sodium 40 mg 10/11/20 10:00 10/11/20 10:13 Enoxaparin Sodium SQ 11/10/20 09:59 40 mg DAILY LATONYA Administration Hydromorphone HCl 0.5 mg 10/11/20 00:33 10/11/20 00:39 Hydromorphone 1 Mg/Ml Injection IV 10/11/20 00:34 0.5 mg STAT ONE Administration Hydromorphone HCl Confirm 10/11/20 00:37 Hydromorphone 1 Mg/Ml Injection Administered 10/11/20 00:38 Dose 1 mg .ROUTE .STK-MED ONE Sodium Chloride Confirm 10/11/20 00:26 Sodium Chloride 0.9% 1000 Ml Administered 10/11/20 00:27 Dose 1,000 mls @ ud .ROUTE .STK-MED ONE Sodium Chloride 1,000 mls @ 999 mls/hr 10/11/20 00:33 10/11/20 02:11 Sodium Chloride 0.9% 1000 Ml IV 10/11/20 01:33 Infused .Q1H1M STA Infusion Metronidazole 500 mg in 100 mls @ 200 mls/hr 10/11/20 04:59 10/11/20 05:45 Flagyl 500 Mg Ivpb IV 10/11/20 05:28 200 mls/hr STAT STA 200 mls/hr Administration Levofloxacin/Dextrose 500 mg in 100 mls @ 100 mls/hr 10/11/20 04:59 10/11/20 05:46 Levofloxacin 500mg/100ml D5w IV 10/11/20 05:58 100 mls/hr STAT STA 100 mls/hr Administration Metronidazole Confirm 10/11/20 05:40 Flagyl 500 Mg Ivpb Administered 10/11/20 05:41 Dose 500 mg in 100 mls @ ud IV .STK-MED ONE Levofloxacin/Dextrose Confirm 10/11/20 05:40 Levofloxacin 500mg/100ml D5w Administered 10/11/20 05:41 Dose 500 mg in 100 mls @ ud IV .STK-MED ONE Sodium Chloride Confirm 10/11/20 04:28 Sodium Chloride 0.9% 1000 Ml Administered 10/11/20 04:29 Dose 1,000 mls @ ud .ROUTE .STK-MED ONE Metronidazole 500 mg in 100 mls @ 200 mls/hr 10/11/20 14:00 Flagyl 500 Mg Ivpb IV 11/10/20 13:59 Q8HT LATONYA Metoclopramide HCl 10 mg 10/11/20 02:20 10/11/20 02:27 Reglan 10 Mg/2 Ml IV 10/11/20 02:21 10 mg STAT ONE Administration Metoclopramide HCl Confirm 10/11/20 02:26 Reglan 10 Mg/2 Ml Administered 10/11/20 02:27 Dose 10 mg .ROUTE .STK-MED ONE Ondansetron HCl Confirm 10/11/20 00:26 Zofran 4 Mg/2 Ml Vial Administered 10/11/20 00:27 Dose 4 mg .ROUTE .STK-MED ONE Ondansetron HCl 4 mg 10/11/20 00:33 10/11/20 00:34 Zofran 4 Mg/2 Ml Vial IV 10/11/20 00:34 4 mg STAT ONE Administration Trazodone HCl Confirm 10/11/20 11:28 Desyrel 50 Mg Administered 10/11/20 11:29 Dose 100 mg .ROUTE .STK-MED ONE Lab/Rad Data: Laboratory Result Diagrams 10/11/20 00:45 10/11/20 00:45 Laboratory Results 10/11/20 10/11/20 10/11/20 Range/Units 05:08 04:43 00:45 WBC (4.0-10.5) K/mm3 RBC (4.1-5.4) M/mm3 Hgb (12.0-16.0) gm/dl Hct (35-47) % MCV (78-100) fl MCH (26-32) pg MCHC (32-36) g/dl RDW (11.5-14.0) % Plt Count (150-450) K/mm3 MPV (7.5-11.0) fl Gran % (36.0-66.0) % Eos # (Auto) (0-0.5) Absolute Lymphs (auto) (1.0-4.6) Absolute Monos (auto) (0.0-1.3) Lymphocytes % (24.0-44.0) % Monocytes % (0.0-12.0) % Eosinophils % (0.00-5.0) % Basophils % (0.0-0.4) % Absolute Granulocytes (1.4-6.9) Basophils # (0-0.4) Sodium 137 (137-145) mmol/L Potassium 4.4 (3.5-5.1) mmol/L Chloride 101 (98-107) mmol/L Carbon Dioxide 26 (22-30) mmol/L Anion Gap 14.8 (5-15) MEQ/L BUN 20 H (7-17) mg/dL Creatinine 1.34 H (0.52-1.04) mg/dL Estimated GFR 41.6 ML/MIN Glucose 145 H (74-106) mg/dL Lactic Acid (0.4-2.0) Calcium 9.6 (8.4-10.2) mg/dL Total Bilirubin 0.80 (0.2-1.3) mg/dL AST 16 (14-36) U/L ALT 7 (0-35) U/L Alkaline Phosphatase 91 (38-126) U/L Serum Total Protein 7.3 (6.3-8.2) g/dL Albumin 3.8 (3.5-5.0) g/dL Amylase 31 (30-110) U/L Lipase 14 L (23-300) U/L Urine Color ARIANNE (YELLOW) Urine Appearance CLOUDY (CLEAR) Urine pH 5.0 (5-6) Ur Specific Sinai 1.023 (1.005-1.025) Urine Protein 100 (Negative) Urine Ketones TRACE (NEGATIVE) Urine Blood NEGATIVE (0-5) Efren/ul Urine Nitrite POSITIVE (NEGATIVE) Urine Bilirubin NEGATIVE (NEGATIVE) Urine Urobilinogen 2 (0-1) mg/dL Ur Leukocyte Esterase MODERATE (NEGATIVE) Urine WBC (Auto) >100 (0-5) /HPF Urine RBC (Auto) 11-15 (0-2) /HPF U Hyaline Cast (Auto) 6-10 (0-2) /LPF U Epithel Cells (Auto) NONE (FEW) /HPF Urine Bacteria (Auto) MANY (NEGATIVE) /HPF Urine Mucus (Auto) MANY (NEGATIVE) /HPF Urine Culture Reflexed YES (NO) Urine Glucose NEGATIVE (NEGATIVE) mg/dL SARS-CoV-2 (PCR) POSITIVE A (NEGATIVE) 02/06/21 02/06/21 Range/Units 00:45 00:33 WBC 12.0 H (4.0-10.5) K/mm3 RBC 4.74 (4.1-5.4) M/mm3 Hgb 13.4 (12.0-16.0) gm/dl Hct 44.0 (35-47) % MCV 92.8 (78-100) fl MCH 28.3 (26-32) pg MCHC 30.5 L (32-36) g/dl RDW 15.7 H (11.5-14.0) % Plt Count 318 (150-450) K/mm3 MPV 10.2 (7.5-11.0) fl Gran % 83.8 H (36.0-66.0) % Eos # (Auto) 0.13 (0-0.5) Absolute Lymphs (auto) 1.19 (1.0-4.6) Absolute Monos (auto) 0.61 (0.0-1.3) Lymphocytes % 9.9 L (24.0-44.0) % Monocytes % 5.1 (0.0-12.0) % Eosinophils % 1.1 (0.00-5.0) % Basophils % 0.1 (0.0-0.4) % Absolute Granulocytes 10.03 H (1.4-6.9) Basophils # 0.01 (0-0.4) Sodium (137-145) mmol/L Potassium (3.5-5.1) mmol/L Chloride (98-107) mmol/L Carbon Dioxide (22-30) mmol/L Anion Gap (5-15) MEQ/L BUN (7-17) mg/dL Creatinine (0.52-1.04) mg/dL Estimated GFR ML/MIN Glucose (74-106) mg/dL Lactic Acid 1.9 (0.4-2.0) Calcium (8.4-10.2) mg/dL Total Bilirubin (0.2-1.3) mg/dL AST (14-36) U/L ALT (0-35) U/L Alkaline Phosphatase (38-126) U/L Serum Total Protein (6.3-8.2) g/dL Albumin (3.5-5.0) g/dL Amylase (30-110) U/L Lipase (23-300) U/L Urine Color (YELLOW) Urine Appearance (CLEAR) Urine pH (5-6) Ur Specific Sinai (1.005-1.025) Urine Protein (Negative) Urine Ketones (NEGATIVE) Urine Blood (0-5) Efren/ul Urine Nitrite (NEGATIVE) Urine Bilirubin (NEGATIVE) Urine Urobilinogen (0-1) mg/dL Ur Leukocyte Esterase (NEGATIVE) Urine WBC (Auto) (0-5) /HPF Urine RBC (Auto) (0-2) /HPF U Hyaline Cast (Auto) (0-2) /LPF U Epithel Cells (Auto) (FEW) /HPF Urine Bacteria (Auto) (NEGATIVE) /HPF Urine Mucus (Auto) (NEGATIVE) /HPF Urine Culture Reflexed (NO) Urine Glucose (NEGATIVE) mg/dL SARS-CoV-2 (PCR) (NEGATIVE) - Progress Progress: improved, pain not gone completely, re-examined Progress Note: 10/11/20 06:19 70 years old is evaluated in the ER for intractable nausea vomiting and diarrhea with abdominal pain. Patient had multiple episodes of vomiting while in the ER. She is given Zofran and Reglan which did help with her nausea vomiting. She is given fluid bolus. Work-up showed white count of 12 mild VISHNU and a CT finding suggesting enteritis with bilateral perinephric fat stranding and UTI. She is started on Levaquin and Flagyl. I have obtained COVID-19 which is positive. Discussed with Dr. Bustillo and patient is admitted. Discussed with : Collin Will see patient in: hospital (observation) Counseled pt/family regarding: lab results, diagnosis, rad results - Departure Departure Disposition: Observation Clinical Impression: Gastroenteritis, COVID-19, VISHNU (acute kidney injury) UTI (urinary tract infection) Qualifiers: Urinary tract infection type: site unspecified Hematuria presence: without hematuria Qualified Code(s): N39.0 - Urinary tract infection, site not specified Condition: Stable Critical Care Time: Yes Critical Care Time(excluding separately billable procedures): Critical 30-74 mins
[2020-10-11 01:05] LABS: Absolute Neutrophil Ct (ANC) 10.03 (1.4-6.9); BASOPHIL % 0.1 % (0.0-0.4); Basophil (Absolute #) 0.01 (0-0.4); Eosinophil % 1.1 % (0.00-5.0); Eosinophil (Absolute #) 0.13 (0-0.5); Hemoglobin 13.4 gm/dl (12.0-16.0); Lymphocyte (Absolute #) 1.19 (1.0-4.6); Lymphocytes % 9.9 % (24.0-44.0); Mean Cell Volume 92.8 fl (78-100); Mean Corpuscular Hemoglobin 28.3 pg (26-32); Mean Corpuscular Hgb Concent. 30.5 g/dl (32-36); Mean Platelet Volume 10.2 fl (7.5-11.0); Monocyte (Absolute #) 0.61 (0.0-1.3); Monocytes % 5.1 % (0.0-12.0); Neutrophil % 83.8 % (36.0-66.0); Platelet Count 318 K/mm3 (150-450); Red Blood Count 4.74 M/mm3 (4.1-5.4); Red Cell Distribution Width 15.7 % (11.5-14.0)
[2020-10-11 01:17] LABS: ALBUMIN 3.8 g/dL (3.5-5.0); ANION GAP 14.8 MEQ/L (5-15); BILIRUBIN,TOTAL 0.8 mg/dL (0.2-1.3); Calcium 9.6 mg/dL (8.4-10.2); Creatinine 1 1.34 mg/dL (0.52-1.04); EST GLOMERULAR FILTRATION RATE 41.6 ML/MIN; Potassium 4.4 mmol/L (3.5-5.1); Total Protein 7.3 g/dL (6.3-8.2)
[2020-10-11] MEDS ORDERED: Reglan 10 MG/2 ML IV ONE (02:20)
[2020-10-11] MEDS ORDERED: Reglan 10 MG/2 ML ONE (02:26)
[2020-10-11] MEDS: Sodium Chloride 0.9% 1000 ML 1,000 ML IV SCH ×3 (04:30→23:41)
[2020-10-11 04:52] LABS: Appearance CLOUDY (CLEAR); Bacteria MANY /HPF (NEGATIVE); Bilirubin NEGATIVE (NEGATIVE); Blood NEGATIVE Ery/ul (0-5); Glucose NEGATIVE (NEGATIVE); Ketones TRACE (NEGATIVE); Leukocyte Esterase MODERATE (NEGATIVE); Mucus MANY /HPF (NEGATIVE); Nitrite POSITIVE (NEGATIVE); Protein,Urine Dip 100 (Negative); Specific Gravity 1.023 (1.005-1.025); Urobilinogen 2 mg/dL (0-1); WBC >100 /HPF (0-5)
[2020-10-11] MEDS ORDERED: FLAGYL 500 MG IVPB 500 MG/100 ML BAG IV STA (04:59)
[2020-10-11] MEDS ORDERED: Levofloxacin 500MG/100ML D5W 500 MG/100 ML BAG IV STA (04:59)
[2020-10-11] MEDS ORDERED: FLAGYL 500 MG IVPB 500 MG/100 ML BAG IV ONE (05:40)
[2020-10-11] MEDS ORDERED: Levofloxacin 500MG/100ML D5W 500 MG/100 ML BAG IV ONE (05:40)
[2020-10-11] MEDS ORDERED: VENTOLIN COMMON CANISTER IH PRN (07:30)
[2020-10-11] MEDS ORDERED: TYLENOL 325 MG PO PRN (07:30)
[2020-10-11] MEDS ORDERED: HUMALOG SQ PRN (07:30)
--- NOTE | 2020-10-11 08:40 | XRAY ---
Indication: Abdomen pain, nausea, vomiting, diarrhea. GERD. Multiple contiguous axial images obtained through the abdomen and pelvis without contrast as ordered. Comparison: November 30, 2008. Lung bases demonstrates minimal bibasilar subsegmental atelectasis/scarring without infiltrate or effusion. Heart is not enlarged. Noncontrasted stomach and bowel loops appear nonobstructed. Several jejunal bowel loops are now mildly fluid distended with wall thickening and minimal stranding favor enteritis. Tiny bilateral free fluid presumed reactive. No walled off fluid collection or free air. There is also a new midline ventral hernia defect at the level of the umbilicus at least 8 cm wide containing small bowel, fat, and fluid without obstruction/incarceration. Appendix not seen. Again cholecystectomy and hysterectomy. Remaining liver, pancreas, spleen, adrenal glands, kidneys, ureters, and bladder appear unremarkable for noncontrasted exam. Mild aortoiliac calcifications without AAA. Osseous structures intact with mild osteopenia and mild degenerative changes throughout the thoracolumbar spine. Progressive worsening markedly advanced degenerative changes of both hips, left greater than right. Impression: 1. Fluid distended jejunal bowel loops with wall thickening and stranding. Rule out enteritis. Tiny free fluid presumed reactive. 2. New wide mouth ventral hernia containing nonobstructing small bowel, fat, and fluid. 3. Chronic bony findings. Comment: Preliminary interpretation was made by [facility]. No critical discrepancy.
[2020-10-11] MEDS ORDERED: ENOXAPARIN SODIUM SQ SCH (10:00)
[2020-10-11] MEDS: PROTONIX 40 MG IV IV SCH (10:14)
--- NOTE | 2020-10-11 10:22 | PCM.HP ---
History of Present Illness - Chief Complaint Chief Complaint: COVID History of Present Illness: is a 70 year old female from [place], she was sent to ER per her request with vomiting and diarrhea for the last 2 days, this is a common complaint for her. she has no cough, no fever, had a known covid infection in August with positive swab and recovered. - Review of Systems Constitutional: No Fever, No Chills Respiratory: No Cough, No Short Of Breath Cardiac: No Chest Pain, No Edema, No Syncope Abdominal/Gastrointestinal: Nausea, Vomiting, Diarrhea Genitourinary Symptoms: No Dysuria All Other Systems: Reviewed and Negative Medications & Allergies Home Medications: Home Medication List Furosemide [Lasix] 20 mg PO DAILY 02/18/16 [History Confirmed 10/11/20] Ondansetron HCl [Zofran] 8 mg PO Q6H PRN 10/05/16 [History Confirmed 10/11/20] Fesoterodine Fumarate [Toviaz] 8 mg PO DAILY 12/16/18 [History Confirmed 10/11/20] Acetaminophen 325 mg [Tylenol 325 mg] 650 mg PO Q6H PRN 10/11/20 [History Confirmed 10/11/20] Aspirin EC 81 mg [Ecotrin 81 mg] 1 tab PO DAILY 10/11/20 [History Confirmed 10/11/20] Bupropion HCl Xl 150 mg [Wellbutrin XL 150 MG] 300 mg PO DAILY 10/11/20 [History Confirmed 10/11/20] Diphenhydramine HCl 25 mg [Benadryl 25 mg Capsule] 25 mg PO Q6H PRN PRN 10/11/20 [History Confirmed 10/11/20] Famotidine 20 mg [Pepcid 20 MG] 20 mg PO BID 10/11/20 [History Confirmed 10/11/20] Ketotifen Fumarate [Refresh] 1 drop OP DAILY 10/11/20 [History Confirmed 10/11/20] Linaclotide [Linzess] 145 mcg PO DAILY 10/11/20 [History Confirmed 10/11/20] Magnesium Hydroxide 30 ml [Milk of Magnesia 30 ml] 30 ml PO DAILY PRN 10/11/20 [History Confirmed 10/11/20] Menthol/Zinc Oxide [Calmoseptine Ointment] 1 applic TOP BID 10/11/20 [History Confirmed 10/11/20] Nystatin 100,000 units TOP DAILY 10/11/20 [History Confirmed 10/11/20] Polyethylene Glycol 3350 17 gm [Miralax Powder 17GM PACKET] 17 g PO DAILY 10/11/20 [History Confirmed 10/11/20] Trazodone HCl 50 mg [Desyrel 50 mg] 1 tab PO QHS 10/11/20 [History Confirmed 10/11/20] Allergies/Adverse Reactions: Allergies Allergy/AdvReac Type Severity Reaction Status Date / Time amoxicillin Allergy Swelling Verified 10/11/20 07:37 of Tongue and Lips pregabalin [From Lyrica] Allergy Verified 10/11/20 07:37 morphine AdvReac Severe Difficulty Verified 10/11/20 07:37 Breathing - Past Medical History Past Medical History: Yes Neurological History: Peripheral Neuropathy, TIA ENT History: Other Cardiac History: Hypertension Respiratory History: COPD, Sleep Apnea Endocrine Medical History: Diabetes Type II Musculoskelatal History: Arthritis GI Medical History: GERD, Other History: Other Pyscho-Social History: Anxiety, Depression Reproductive Disorders: No Pertinent History Comment: bladder incontinence hysterectomy and gall bladder removed, dry eyes - Female History Are you now?: No - Past Surgical History Past Surgical History: Yes Neuro Surgical History: No Pertinent History Cardiac History: No Pertinent History Respiratory Surgery: No Pertinent History GI Surgical History: Cholecystectomy, Colon Resection Genitourinary Surgical Hx: No Pertinent History Musculskeletal Surgical Hx: No Pertinent History Female Surgical History: Hysterectomy, Tubal Ligation - Social History Smoking Status: Former smoker Exposure to second hand smoke: No Alcohol: None Drug Use: none - Physical Exam Vital Signs: Vital Signs - 24 hr Temp Pulse Resp BP Pulse Ox 10/11/20 10:00 74 17 94 L 10/11/20 08:16 98.1 F 81 18 120/58 97 10/11/20 06:55 98 10/11/20 06:00 73 16 94/53 97 10/11/20 05:00 90 20 117/76 96 10/11/20 04:00 85 16 102/67 95 10/11/20 03:14 86 102/67 95 10/11/20 02:34 88 127/73 95 10/11/20 00:19 99.1 F 104 H 20 137/94 98 General Appearance: no apparent distress, obese Neurologic Exam: alert, oriented x 3 Respiratory Exam: normal breath sounds, lungs clear, No respiratory distress Cardiovascular Exam: regular rate/rhythm, normal heart sounds, normal peripheral pulses Gastrointestinal/Abdomen Exam: soft, normal bowel sounds, other (large soft reducible ventral hernia, nonsurgical abdomen), No tenderness, No distention Extremity Exam: normal inspection, normal range of motion, pelvis stable Skin Exam: normal color, warm, dry, No rash Results - Labs Lab/Micro Results: Lab Results-Last 24 Hours 10/11/20 10/11/20 10/11/20 Range/Units 00:33 00:45 00:45 WBC 12.0 H (4.0-10.5) K/mm3 RBC 4.74 (4.1-5.4) M/mm3 Hgb 13.4 (12.0-16.0) gm/dl Hct 44.0 (35-47) % MCV 92.8 (78-100) fl MCH 28.3 (26-32) pg MCHC 30.5 L (32-36) g/dl RDW 15.7 H (11.5-14.0) % Plt Count 318 (150-450) K/mm3 MPV 10.2 (7.5-11.0) fl Gran % 83.8 H (36.0-66.0) % Eos # (Auto) 0.13 (0-0.5) Absolute Lymphs (auto) 1.19 (1.0-4.6) Absolute Monos (auto) 0.61 (0.0-1.3) Lymphocytes % 9.9 L (24.0-44.0) % Monocytes % 5.1 (0.0-12.0) % Eosinophils % 1.1 (0.00-5.0) % Basophils % 0.1 (0.0-0.4) % Absolute Granulocytes 10.03 H (1.4-6.9) Basophils # 0.01 (0-0.4) Sodium 137 (137-145) mmol/L Potassium 4.4 (3.5-5.1) mmol/L Chloride 101 (98-107) mmol/L Carbon Dioxide 26 (22-30) mmol/L Anion Gap 14.8 (5-15) MEQ/L BUN 20 H (7-17) mg/dL Creatinine 1.34 H (0.52-1.04) mg/dL Estimated GFR 41.6 ML/MIN Glucose 145 H (74-106) mg/dL POC Glucometer (74 to 106) mg/dL Lactic Acid 1.9 (0.4-2.0) Calcium 9.6 (8.4-10.2) mg/dL Total Bilirubin 0.80 (0.2-1.3) mg/dL AST 16 (14-36) U/L ALT 7 (0-35) U/L Alkaline Phosphatase 91 (38-126) U/L Serum Total Protein 7.3 (6.3-8.2) g/dL Albumin 3.8 (3.5-5.0) g/dL Amylase 31 (30-110) U/L Lipase 14 L (23-300) U/L Urine Color (YELLOW) Urine Appearance (CLEAR) Urine pH (5-6) Ur Specific [place] (1.005-1.025) Urine Protein (Negative) Urine Ketones (NEGATIVE) Urine Blood (0-5) Efren/ul Urine Nitrite (NEGATIVE) Urine Bilirubin (NEGATIVE) Urine Urobilinogen (0-1) mg/dL Ur Leukocyte Esterase (NEGATIVE) Urine WBC (Auto) (0-5) /HPF Urine RBC (Auto) (0-2) /HPF U Hyaline Cast (Auto) (0-2) /LPF U Epithel Cells (Auto) (FEW) /HPF Urine Bacteria (Auto) (NEGATIVE) /HPF Urine Mucus (Auto) (NEGATIVE) /HPF Urine Culture Reflexed (NO) Urine Glucose (NEGATIVE) mg/dL SARS-CoV-2 (PCR) (NEGATIVE) 10/11/20 10/11/20 10/11/20 Range/Units 04:43 05:08 09:05 WBC (4.0-10.5) K/mm3 RBC (4.1-5.4) M/mm3 Hgb (12.0-16.0) gm/dl Hct (35-47) % MCV (78-100) fl MCH (26-32) pg MCHC (32-36) g/dl RDW (11.5-14.0) % Plt Count (150-450) K/mm3 MPV (7.5-11.0) fl Gran % (36.0-66.0) % Eos # (Auto) (0-0.5) Absolute Lymphs (auto) (1.0-4.6) Absolute Monos (auto) (0.0-1.3) Lymphocytes % (24.0-44.0) % Monocytes % (0.0-12.0) % Eosinophils % (0.00-5.0) % Basophils % (0.0-0.4) % Absolute Granulocytes (1.4-6.9) Basophils # (0-0.4) Sodium (137-145) mmol/L Potassium (3.5-5.1) mmol/L Chloride (98-107) mmol/L Carbon Dioxide (22-30) mmol/L Anion Gap (5-15) MEQ/L BUN (7-17) mg/dL Creatinine (0.52-1.04) mg/dL Estimated GFR ML/MIN Glucose (74-106) mg/dL POC Glucometer 119 H (74 to 106) mg/dL Lactic Acid (0.4-2.0) Calcium (8.4-10.2) mg/dL Total Bilirubin (0.2-1.3) mg/dL AST (14-36) U/L ALT (0-35) U/L Alkaline Phosphatase (38-126) U/L Serum Total Protein (6.3-8.2) g/dL Albumin (3.5-5.0) g/dL Amylase (30-110) U/L Lipase (23-300) U/L Urine Color ARIANNE (YELLOW) Urine Appearance CLOUDY (CLEAR) Urine pH 5.0 (5-6) Ur Specific [place] 1.023 (1.005-1.025) Urine Protein 100 (Negative) Urine Ketones TRACE (NEGATIVE) Urine Blood NEGATIVE (0-5) Efren/ul Urine Nitrite POSITIVE (NEGATIVE) Urine Bilirubin NEGATIVE (NEGATIVE) Urine Urobilinogen 2 (0-1) mg/dL Ur Leukocyte Esterase MODERATE (NEGATIVE) Urine WBC (Auto) >100 (0-5) /HPF Urine RBC (Auto) 11-15 (0-2) /HPF U Hyaline Cast (Auto) 6-10 (0-2) /LPF U Epithel Cells (Auto) NONE (FEW) /HPF Urine Bacteria (Auto) MANY (NEGATIVE) /HPF Urine Mucus (Auto) MANY (NEGATIVE) /HPF Urine Culture Reflexed YES (NO) Urine Glucose NEGATIVE (NEGATIVE) mg/dL SARS-CoV-2 (PCR) POSITIVE A (NEGATIVE) Accuchecks Date 10/11/20 Time 09:00 - Radiology Impressions Radiology Exams & Impressions: Radiology Procedures Category Date Time Status ABDOMEN AND PELVIS W/0 CONTRAS [CT] Stat Exams 10/11/20 01:19 Completed - Other Procedures and Tests Respiratory Therapy 10/11/20 07:30 Respiratory Therapy Consult ROUTINE Assessment/Plan (1) Diarrhea Current Visit: Yes Status: Acute Assessment & Plan: GI panel if has more stools, no diarrhea since admission Code(s): R19.7 - DIARRHEA, UNSPECIFIED (2) VISHNU (acute kidney injury) Current Visit: Yes Status: Acute Assessment & Plan: gentle hydration Code(s): N17.9 - ACUTE KIDNEY FAILURE, UNSPECIFIED (3) COVID-19 Current Visit: Yes Status: Acute Assessment & Plan: residual viral shedding from infection in August is most likely, clinical picture not supportive of active covid infection currently Code(s): U07.1 - COVID-19 (4) UTI (urinary tract infection) Current Visit: Yes Status: Acute Qualifiers: Urinary tract infection type: site unspecified Hematuria presence: without hematuria Qualified Code(s): N39.0 - Urinary tract infection, site not speci fied Assessment & Plan: culture pending, continue levaquin Code(s): N39.0 - URINARY TRACT INFECTION, SITE NOT SPECIFIED (5) Dehydration Current Visit: No Status: Acute Code(s): E86.0 - DEHYDRATION (6) Nausea & vomiting Current Visit: No Status: Acute Assessment & Plan: advance diet, back to [place] when tolerating po intake. Code(s): R11.2 - NAUSEA WITH VOMITING, UNSPECIFIED
[2020-10-11] MEDS ORDERED: DESYREL 50 MG ONE (11:28)
[2020-10-11] MEDS: Wellbutrin XL 150 MG PO SCH (11:32)
[2020-10-11] MEDS: ECOTRIN 81 MG PO SCH (11:32)
[2020-10-11] MEDS: Pepcid 20 MG PO SCH ×2 (11:34→22:49)
[2020-10-11] MEDS: Zofran 4 MG/2 ML VIAL IV PRN ×2 (13:37→23:03)
[2020-10-11] MEDS ORDERED: FLAGYL 500 MG IVPB 500 MG/100 ML BAG IV SCH (14:00)
[2020-10-11] MEDS ORDERED: DESYREL 50 MG PO SCH (22:00)
[2020-10-11] MEDS: MENTHOL TOP SCH (23:41)
[2020-10-11] MEDS: ZINC OXIDE TOP SCH (23:41)
[2020-10-12] MEDS: Zofran 4 MG/2 ML VIAL IV PRN (07:35)
[2020-10-12 07:37] LABS: ALBUMIN 2.6 g/dL (3.5-5.0); ALKALINE PHOSPHATASE 53 U/L (38-126); ANION GAP 8.7 MEQ/L (5-15); BLOOD UREA NITROGEN 18 mg/dL (7-17); CHLORIDE 107 mmol/L (98-107); Calcium 8.2 mg/dL (8.4-10.2); Carbon Dioxide 23 mmol/L (22-30); Creatinine 1 0.81 mg/dL (0.52-1.04); EST GLOMERULAR FILTRATION RATE > 60.0 ML/MIN; Glucose 107 mg/dL (74-106); Potassium 3.4 mmol/L (3.5-5.1); SGOT/AST 14 U/L (14-36); SODIUM 136 mmol/L (137-145); Total Protein 5.1 g/dL (6.3-8.2)
[2020-10-12 07:46] LABS: SGPT/ALT < 4 U/L (0-35)
[2020-10-12 08:16] LABS: Absolute Neutrophil Ct (ANC) 2.81 (1.4-6.9); BASOPHIL % 0.2 % (0.0-0.4); Basophil (Absolute #) 0.01 (0-0.4); Eosinophil % 3.7 % (0.00-5.0); Eosinophil (Absolute #) 0.17 (0-0.5); Hematocrit 29.2 % (35-47); Lymphocyte (Absolute #) 1.25 (1.0-4.6); Lymphocytes % 27.5 % (24.0-44.0); Mean Cell Volume 95.1 fl (78-100); Mean Corpuscular Hemoglobin 28.7 pg (26-32); Mean Corpuscular Hgb Concent. 30.1 g/dl (32-36); Mean Platelet Volume 9.9 fl (7.5-11.0); Monocytes % 6.6 % (0.0-12.0); Red Blood Count 3.07 M/mm3 (4.1-5.4); Red Cell Distribution Width 15.2 % (11.5-14.0); White Blood Count 4.5 K/mm3 (4.0-10.5)
[2020-10-12 08:18] LABS: Hemoglobin 8.8 gm/dl (12.0-16.0); Platelet Count 172 K/mm3 (150-450)
--- NOTE | 2020-10-12 09:01 | PCM.DS ---
Discharge Summary Date of Admission: 10/11/20 06:55 Admitting Physician: MUKUL ANN Primary Care Provider: GRACIE Allergies Allergies amoxicillin Allergy (Verified 10/11/20 07:37) Swelling of Tongue and Lips pregabalin [From Lyrica] Allergy (Verified 10/11/20 07:37) swelling morphine Adverse Reaction (Severe, Verified 10/11/20 07:37) Difficulty Breathing Hospital Summary - Hospital Course Hospital Course: patient admitted with vomiting and diarrhea, resolved after admission. had a positive covid swab in ER but recovered from a known infection in August, no fever, no cough or other complaints. - Vitals & Intake/Output Vital Signs: Vital Signs Temperature 98.7 F 10/12/20 07:31 Pulse Rate 74 10/12/20 07:31 Respiratory Rate 16 10/12/20 07:45 Blood Pressure 111/51 10/12/20 07:31 O2 Sat by Pulse Oximetry 97 10/12/20 07:31 Intake & Output: Intake & Output 10/09/20 10/10/20 10/11/20 10/12/20 11:59 11:59 11:59 11:59 Intake Total 0 3429 Output Total 500 Balance 0 2929 Weight 95.5 kg 96.3 kg - Lab Result Diagrams: 10/12/20 05:53 10/12/20 05:53 Lab Results-Last 24 Hrs: Lab Results-Last 24 Hours 10/11/20 10/11/20 10/11/20 Range/Units 09:05 11:30 11:56 WBC (4.0-10.5) K/mm3 RBC (4.1-5.4) M/mm3 Hgb (12.0-16.0) gm/dl Hct (35-47) % MCV (78-100) fl MCH (26-32) pg MCHC (32-36) g/dl RDW (11.5-14.0) % Plt Count (150-450) K/mm3 MPV (7.5-11.0) fl Gran % (36.0-66.0) % Eos # (Auto) (0-0.5) Absolute Lymphs (auto) (1.0-4.6) Absolute Monos (auto) (0.0-1.3) Lymphocytes % (24.0-44.0) % Monocytes % (0.0-12.0) % Eosinophils % (0.00-5.0) % Basophils % (0.0-0.4) % Absolute Granulocytes (1.4-6.9) Basophils # (0-0.4) Sodium (137-145) mmol/L Potassium (3.5-5.1) mmol/L Chloride (98-107) mmol/L Carbon Dioxide (22-30) mmol/L Anion Gap (5-15) MEQ/L BUN (7-17) mg/dL Creatinine (0.52-1.04) mg/dL Estimated GFR ML/MIN Glucose (74-106) mg/dL POC Glucometer 119 H 98 (74 to 106) mg/dL Hemoglobin A1c 4.77 (4.5-6.0) % Calcium (8.4-10.2) mg/dL Total Bilirubin (0.2-1.3) mg/dL AST (14-36) U/L ALT (0-35) U/L Alkaline Phosphatase (38-126) U/L Serum Total Protein (6.3-8.2) g/dL Albumin (3.5-5.0) g/dL 10/11/20 10/11/20 10/12/20 Range/Units 16:57 20:29 05:53 WBC 4.5 (4.0-10.5) K/mm3 RBC 3.07 L (4.1-5.4) M/mm3 Hgb 8.8 L D (12.0-16.0) gm/dl Hct 29.2 L (35-47) % MCV 95.1 (78-100) fl MCH 28.7 (26-32) pg MCHC 30.1 L (32-36) g/dl RDW 15.2 H (11.5-14.0) % Plt Count 172 D (150-450) K/mm3 MPV 9.9 (7.5-11.0) fl Gran % 62.0 (36.0-66.0) % Eos # (Auto) 0.17 (0-0.5) Absolute Lymphs (auto) 1.25 (1.0-4.6) Absolute Monos (auto) 0.30 (0.0-1.3) Lymphocytes % 27.5 (24.0-44.0) % Monocytes % 6.6 (0.0-12.0) % Eosinophils % 3.7 (0.00-5.0) % Basophils % 0.2 (0.0-0.4) % Absolute Granulocytes 2.81 (1.4-6.9) Basophils # 0.01 (0-0.4) Sodium (137-145) mmol/L Potassium (3.5-5.1) mmol/L Chloride (98-107) mmol/L Carbon Dioxide (22-30) mmol/L Anion Gap (5-15) MEQ/L BUN (7-17) mg/dL Creatinine (0.52-1.04) mg/dL Estimated GFR ML/MIN Glucose (74-106) mg/dL POC Glucometer 91 75 (74 to 106) mg/dL Hemoglobin A1c (4.5-6.0) % Calcium (8.4-10.2) mg/dL Total Bilirubin (0.2-1.3) mg/dL AST (14-36) U/L ALT (0-35) U/L Alkaline Phosphatase (38-126) U/L Serum Total Protein (6.3-8.2) g/dL Albumin (3.5-5.0) g/dL 10/12/20 Range/Units 05:53 WBC (4.0-10.5) K/mm3 RBC (4.1-5.4) M/mm3 Hgb (12.0-16.0) gm/dl Hct (35-47) % MCV (78-100) fl MCH (26-32) pg MCHC (32-36) g/dl RDW (11.5-14.0) % Plt Count (150-450) K/mm3 MPV (7.5-11.0) fl Gran % (36.0-66.0) % Eos # (Auto) (0-0.5) Absolute Lymphs (auto) (1.0-4.6) Absolute Monos (auto) (0.0-1.3) Lymphocytes % (24.0-44.0) % Monocytes % (0.0-12.0) % Eosinophils % (0.00-5.0) % Basophils % (0.0-0.4) % Absolute Granulocytes (1.4-6.9) Basophils # (0-0.4) Sodium 136 L (137-145) mmol/L Potassium 3.4 L D (3.5-5.1) mmol/L Chloride 107 (98-107) mmol/L Carbon Dioxide 23 (22-30) mmol/L Anion Gap 8.7 (5-15) MEQ/L BUN 18 H (7-17) mg/dL Creatinine 0.81 (0.52-1.04) mg/dL Estimated GFR > 60.0 ML/MIN Glucose 107 H (74-106) mg/dL POC Glucometer (74 to 106) mg/dL Hemoglobin A1c (4.5-6.0) % Calcium 8.2 L (8.4-10.2) mg/dL Total Bilirubin 0.20 (0.2-1.3) mg/dL AST 14 (14-36) U/L ALT < 4 (0-35) U/L Alkaline Phosphatase 53 (38-126) U/L Serum Total Protein 5.1 L (6.3-8.2) g/dL Albumin 2.6 L (3.5-5.0) g/dL Micro Results-Entire Visit: Accuchecks Date 10/12/20 Date 10/11/20 Date 10/11/20 Date 10/11/20 Time 07:30 Time 16:50 Time 11:50 - Radiology Exams Ordered Rad Exams-Entire Visit: Radiology Procedures Category Date Time Status ABDOMEN AND PELVIS W/0 CONTRAS [CT] Stat Exams 10/11/20 01:19 Completed - Procedures and Test Procedures and Tests throughout Hospitalization: Therapy Orders & Screens 10/11/20 07:30 Respiratory Therapy Consult ROUTINE Comment: Reason For Exam: 10/11/20 11:37 Respiratory MDI UD Comment: Diagnosis: COVID 10/11/20 11:39 Respiratory Therapy Assessment DAILY Comment: Diagnosis: COVID Discharge Exam General Appearance: no apparent distress, alert, obese Respiratory Exam: normal breath sounds, lungs clear, No respiratory distress Cardiovascular Exam: regular rate/rhythm, normal heart sounds Gastrointestinal/Abdomen Exam: soft, normal bowel sounds, other (large, soft and reducible ventral hernia), No tenderness, No distention Extremity Exam: normal inspection, normal range of motion Skin Exam: normal color, warm, dry Final Diagnosis/Problem List - Final Discharge Diagnosis/Problem (1) Diarrhea Current Visit: Yes Status: Acute Assessment & Plan: resolved, will d/c linzess on discharge due to chronic loose stools superimposed with treatment for constipation. Code(s): R19.7 - DIARRHEA, UNSPECIFIED (2) VISHNU (acute kidney injury) Current Visit: Yes Status: Acute Code(s): N17.9 - ACUTE KIDNEY FAILURE, UNSPECIFIED (3) COVID-19 Current Visit: Yes Status: Acute Assessment & Plan: latent viral particle shedding Code(s): U07.1 - COVID-19 (4) UTI (urinary tract infection) Current Visit: Yes Status: Acute Assessment & Plan: continue levaquin, culture pending at discharge. Code(s): N39.0 - URINARY TRACT INFECTION, SITE NOT SPECIFIED (5) Dehydration Current Visit: No Status: Acute Code(s): E86.0 - DEHYDRATION (6) Nausea & vomiting Current Visit: No Status: Acute Code(s): R11.2 - NAUSEA WITH VOMITING, UNSPECIFIED - Discharge Disposition: Skilled Care @ [facility] Condition: Stable Prescriptions: New Levofloxacin [Levaquin] 250 mg PO DAILY #5 tablet Continue Furosemide [Lasix] 20 mg PO DAILY Ondansetron HCl [Zofran] 8 mg PO Q6H PRN PRN Reason: Nausea Fesoterodine Fumarate [Toviaz] 8 mg PO DAILY Menthol/Zinc Oxide [Calmoseptine Ointment] 1 applic TOP BID Acetaminophen 325 mg [Tylenol 325 mg] 650 mg PO Q6H PRN PRN Reason: Pain And/Or Fever Magnesium Hydroxide 30 ml [Milk of Magnesia 30 ml] 30 ml PO DAILY PRN PRN Reason: Constipation Diphenhydramine HCl 25 mg [Benadryl 25 mg Capsule] 25 mg PO Q6H PRN PRN PRN Reason: Itching Famotidine 20 mg [Pepcid 20 MG] 20 mg PO BID Bupropion HCl Xl 150 mg [Wellbutrin XL 150 MG] 300 mg PO DAILY Trazodone HCl 50 mg [Desyrel 50 mg] 1 tab PO QHS Ketotifen Fumarate [Refresh] 1 drop OP DAILY Polyethylene Glycol 3350 17 gm [Miralax Powder 17GM PACKET] 17 g PO DAILY Aspirin EC 81 mg [Ecotrin 81 mg] 1 tab PO DAILY Nystatin 100,000 units TOP DAILY Discontinued Linaclotide [Linzess] 145 mcg PO DAILY Additional Instructions: check cbc with diff and bmp on 10/15 with dx acute kidney injury. call Dr Ann if any new problems or concerns or if constipation recurs off linzess Follow up with: HAI MARQUEZ [Primary Care Provider] -
[2020-10-12] MEDS: ECOTRIN 81 MG PO SCH (09:33)
[2020-10-12] MEDS: Pepcid 20 MG PO SCH (09:33)
[2020-10-12] MEDS: PROTONIX 40 MG IV IV SCH (09:35)
[2020-10-12] MEDS: Wellbutrin XL 150 MG PO SCH (09:36)
[2020-10-12] MEDS ORDERED: Levofloxacin 500MG/100ML D5W 500 MG/100 ML BAG IV SCH (10:00)
[2020-10-12] MEDS ORDERED: NYSTATIN 100000 UNIT TOP SCH (10:00)
[2020-10-12] MEDS ORDERED: Artificial Tears 15 ML OP SCH (10:00)
[2020-10-12] MEDS ORDERED: KETOTIFEN FUMARATE OP SCH (10:00)
[2020-10-12] MEDS ORDERED: NYSTOP POWDER 15 GM TOP SCH (10:00)
[2020-10-12] MEDS: ZINC OXIDE TOP SCH (10:27)
[2020-10-12] MEDS: Sodium Chloride 0.9% 1000 ML 1,000 ML IV SCH (10:27)
[2020-10-12] MEDS: MENTHOL TOP SCH (10:27)
[2020-10-12 11:16] VITALS: BP 105/52; PULSE 80
[2020-10-12 13:33] VITALS: O2SAT 98
== END 2020-10-12 13:18 ==
LOC: ED 00:17 → MED SURG 06:55
PROVIDERS: ADMIT Family Medicine; ATTEND Family Medicine
DX: R19.7 Diarrhea, unspecified (principal); R10.84 Generalized abdominal pain; N39.0 Urinary tract infection, site not specified; R11.2 Nausea with vomiting, unspecified; U07.1 COVID-19; R53.83 Other fatigue; E86.0 Dehydration; Z79.899 Other long term (current) drug therapy; R51.9 Headache, unspecified; J44.9 Chronic obstructive pulmonary disease, unspecified; E11.9 Type 2 diabetes mellitus without complications; G47.30 Sleep apnea, unspecified; Z86.73 Personal history of transient ischemic attack (TIA), and cerebral infarction without residual deficits; N17.9 Acute kidney failure, unspecified
CPT/HCPCS: 36000; 36415; 74176; 80053; 81001; 82150; 82947; 83036; 83605; 83690; 85025; 87040; 87077; 87086; 87186; 93268; 94762; 96360; 96361; 96365; 96368; 96374; 96375; 99285; 99291; G0378; U0003; J1170; J1650; J1956; J2405; A9270-GY

== ENCOUNTER 2021-12-09 14:07 | Emergency (ER) | payer MEDICARE ==
--- NOTE | 2021-12-09 14:15 | ERPHSYRPT ---
- History of Present Illness Time Seen by Provider: 12/09/21 14:20 Source: patient Physician History: Patient is a 71-year-old female presents to our ED via EMS for evaluation of bilateral leg pain. Patient states she was ambulating onto a small ramp to assess her body weight on a scale when the ramp tipped causing her to fall. Patient landed with her legs crossed. Patient now has pain at the right knee and left leg. Pain described as an ache that is localized. No radiation. No other injuries reported. No BHT or LOC. No neck pain. Cervical spine cleared clinically. The fall was not associated with any neurological or cardiovascular symptomology. No chest pain or shortness of breath. No nausea vomiting or diaphoresis. No numbness tingling or weakness. Patient is a patient at [facility] Timing/Duration: today Severity: moderate Modifying Factors: Improves With: nothing Associated Symptoms: denies symptoms Allergies/Adverse Reactions: amoxicillin Allergy (Verified 12/09/21 14:18) Swelling of Tongue and Lips pregabalin [From Lyrica] Allergy (Verified 12/09/21 14:18) swelling morphine Adverse Reaction (Severe, Verified 12/09/21 14:18) Difficulty Breathing Home Medications: Furosemide [Lasix] 20 mg PO DAILY 02/18/16 [History] ondansetron HCL [Zofran] 8 mg PO Q6H PRN 10/05/16 [History] Acetaminophen 325 mg [Tylenol 325 mg] 650 mg PO Q6H PRN 10/11/20 [History] Aspirin EC 81 mg [Ecotrin 81 mg] 1 tab PO DAILY 10/11/20 [History] Diphenhydramine HCl 25 mg [Benadryl 25 mg Capsule] 25 mg PO Q6H PRN PRN 10/11/20 [History] Famotidine 20 mg [Pepcid 20 MG] 20 mg PO BID 10/11/20 [History] Magnesium Hydroxide 30 ml [Milk of Magnesia 30 ml] 30 ml PO DAILY PRN 02/23 [History] Nystatin 100,000 units TOP DAILY 10/11/20 [History] Polyethylene Glycol 3350 17 gm [Miralax Powder 17GM PACKET] 17 g PO DAILY 10/11/20 [History] Cran/Vitc/Mannose/Fos/Bromeln [Uti-Stat Liquid] 3,875 mg PO DAILY 12/09/21 [History] Guaifenesin/Dextromethorphan [Robafen Dm Cough 100-10 mg/5Ml] 20 ml PO Q6H PRN 12/09/21 [History] Mineral Oil/Petrolatum,White [Refresh P.m. Ointment] 1 applic OP HS 12/09/21 [History] Multivit,Calc,Mins/Iron/Folic [Thera-M Tablet] 1 each PO DAILY 12/09/21 [History] Omeprazole 40 mg PO DAILY 12/09/21 [History] buPROPion HCL [Bupropion HCl] 75 mg PO DAILY 12/09/21 [History] Hx Tetanus, Diphtheria Vaccination/Date Given: Yes Hx Influenza Vaccination/Date Given: Yes Hx Pneumococcal Vaccination/Date Given: Yes - Review of Systems Constitutional: No Symptoms, No Fever, No Chills Eyes: No Symptoms Ears, Nose, & Throat: No Symptoms Respiratory: No Symptoms, No Cough, No Dyspnea Cardiac: No Symptoms, No Chest Pain, No Edema, No Syncope Abdominal/Gastrointestinal: No Symptoms, No Abdominal Pain, No Nausea, No Vomiting, No Diarrhea Genitourinary Symptoms: No Symptoms, No Dysuria Musculoskeletal: No Symptoms, Other (Hematoma to the anterior aspect of left kn ee. Tenderness of right knee. Both lower extremities are neurovascular intact distally. Compartments are soft. Cap refill less than 2 seconds. PT DP pulse palpable.), No Back Pain, No Neck Pain Skin: No Symptoms, No Rash Neurological: No Symptoms, No Dizziness, No Focal Weakness, No Sensory Changes Psychological: No Symptoms Endocrine: No Symptoms Hematologic/Lymphatic: No Symptoms Immunological/Allergic: No Symptoms All Other Systems: Reviewed and Negative - Past Medical History Pertinent Past Medical History: Yes Neurological History: TIA, Peripheral Neuropathy ENT History: Other Cardiac History: Hypertension Respiratory History: Sleep Apnea, COPD Endocrine Medical History: Diabetes Type II Musculoskeletal History: Arthritis GI Medical History: Other, GERD History: Other Psycho-Social History: Depression, Anxiety Female Reproductive Disorders: No Pertinent History Other Medical History: bladder incontinence hysterectomy and gall bladder removed, dry eyes - Past Surgical History Past Surgical History: Yes Neuro Surgical History: No Pertinent History Cardiac: No Pertinent History Respiratory: No Pertinent History Gastrointestinal: Colon Resection, Cholecystectomy Genitourinary: No Pertinent History Musculoskeletal: No Pertinent History Female Surgical History: Hysterectomy, Tubal Ligation - Social History Smoking Status: Former smoker Exposure to second hand smoke: No Drug Use: none Patient Lives Alone: No - Nursing Vital Signs Nursing Vital Signs: Initial Vital Signs Temperature 96.9 F 12/09/21 14:10 Pulse Rate 79 12/09/21 14:10 Respiratory Rate 20 12/09/21 14:10 Blood Pressure 159/97 12/09/21 14:10 O2 Sat by Pulse Oximetry 98 12/09/21 14:10 Pain Scale Pain Intensity 8 - Physical Exam General Appearance: no apparent distress, alert Eye Exam: PERRL/EOMI, eyes nml inspection Ears, Nose, Throat Exam: normal ENT inspection, TMs normal, pharynx normal, moist mucous membranes Neck Exam: normal inspection, non-tender, supple, full range of motion Respiratory Exam: normal breath sounds, lungs clear, airway intact, No respiratory distress Cardiovascular Exam: regular rate/rhythm, normal heart sounds, normal peripheral pulses Gastrointestinal/Abdomen Exam: soft, normal bowel sounds, No tenderness, No mass Back Exam: normal inspection, normal range of motion, No CVA tenderness, No vertebral tenderness Extremity Exam: normal inspection, normal range of motion, pelvis stable Neurologic Exam: alert, oriented x 3, cooperative, normal mood/affect, nml cerebellar function, nml station & gait, sensation nml, No motor deficits Skin Exam: normal color, warm, dry, No rash Lymphatic Exam: No adenopathy SpO2 Interpretation: normal SpO2: 98 O2 Delivery: Room Air - Course Nursing assessment & vital signs reviewed: Yes - Radiology Exams Lower Leg X-ray Interpretation: Teleradiologist Report (Right leg shows displaced medial femoral condyle fracture with hemarthrosis. Osteopenia) Other X-ray Interpretation: Teleradiologist Report (Left leg shows large anterior knee effusion.) Ordered Tests: Active Orders 24 hr Category Date Time Status Arias [Catheter-[place] Arias] STAT Care 12/09/21 17:04 Active LOWER LEG Stat Exams 12/09/21 14:10 Completed LOWER LEG Stat Exams 12/09/21 14:31 Completed CBC W DIFF Stat Lab 12/09/21 15:35 Completed CMP Stat Lab 12/09/21 15:35 Completed CULTURE,URINE Stat Lab 12/09/21 17:40 Received Medication Summary Generic Name Dose Route Start Last Admin Trade Name Slime PRN Reason Stop Dose Admin Sodium Chloride 1,000 mls @ 100 mls/hr 12/09/21 15:30 12/09/21 15:31 Sodium Chloride 0.9% 1000 Ml IV 01/08/22 15:29 100 mls/hr .Q10H LATONYA Administration Discontinued Medications Generic Name Dose Route Start Last Admin Trade Name Slime PRN Reason Stop Dose Admin Hydromorphone HCl 0.5 mg 12/09/21 14:26 12/09/21 14:30 Hydromorphone 1 Mg/1ml Inj 1 Mg/Ml Syringe IV 12/09/21 14:27 0.5 mg STAT ONE Administration Hydromorphone HCl Confirm 12/09/21 14:29 Hydromorphone 1 Mg/1ml Inj 1 Mg/Ml Syringe Administered 12/09/21 14:30 Dose 1 mg .ROUTE .STK-MED ONE Hydromorphone HCl 0.5 mg 12/09/21 17:49 Hydromorphone 1 Mg/1ml Inj 1 Mg/Ml Syringe IV 12/09/21 17:50 STAT ONE Lab/Rad Data: Laboratory Result Diagrams 12/09/21 15:35 12/09/21 15:35 Laboratory Results 12/09/21 12/09/21 12/09/21 Range/Units 17:08 15:35 15:35 WBC 10.7 H (4.0-10.5) K/mm3 RBC 3.43 L (4.1-5.4) M/mm3 Hgb 10.4 L (12.0-16.0) gm/dl Hct 32.9 L (35-47) % MCV 95.9 (78-100) fl MCH 30.3 (26-32) pg MCHC 31.6 L (32-36) g/dl RDW 13.1 (11.5-14.0) % Plt Count 254 (150-450) K/mm3 MPV 9.6 (7.5-11.0) fl Gran % 82.3 H (36.0-66.0) % Eos # (Auto) 0.09 (0-0.5) Absolute Lymphs (auto) 1.34 (1.0-4.6) Absolute Monos (auto) 0.43 (0.0-1.3) Lymphocytes % 12.5 L (24.0-44.0) % Monocytes % 4.0 (0.0-12.0) % Eosinophils % 0.8 (0.00-5.0) % Basophils % 0.4 (0.0-0.4) % Absolute Granulocytes 8.84 H (1.4-6.9) Basophils # 0.04 (0-0.4) Sodium 138 (137-145) mmol/L Potassium 4.0 (3.5-5.1) mmol/L Chloride 106 (98-107) mmol/L Carbon Dioxide 26 (22-30) mmol/L Anion Gap 10.0 (5-15) MEQ/L BUN 24 H (7-17) mg/dL Creatinine 1.35 H (0.52-1.04) mg/dL Estimated GFR 41.1 ML/MIN Glucose 159 H (74-106) mg/dL Calcium 8.5 (8.4-10.2) mg/dL Total Bilirubin 0.60 (0.2-1.3) mg/dL AST 24 (14-36) U/L ALT 12 (0-35) U/L Alkaline Phosphatase 65 (38-126) U/L Serum Total Protein 6.0 L (6.3-8.2) g/dL Albumin 3.4 L (3.5-5.0) g/dL Urinalys Dipstick Clnc MAIN LAB Urine Color YELLOW (YELLOW) Urine Appearance CLEAR (CLEAR) Urine pH 6.0 (5-6) Ur Specific [place] 1.020 (1.005-1.025) POC Urine Protein Conf NEGATIVE (Negative) Urine Ketones NEGATIVE (NEGATIVE) Urine Nitrite NEGATIVE (NEGATIVE) Urine Bilirubin NEGATIVE (NEGATIVE) Urine Urobilinogen 0.2 (0-1) mg/dL Urine Leukocytes NEGATIVE (NEGATIVE) Urine WBC (Auto) NONE (0-5) /HPF Urine RBC (Auto) NONE (0-2) /HPF U Hyaline Cast (Auto) 3-5 (0-2) /LPF Urine RBC NEGATIVE (0-5) Efren/ul Ur Culture Indicated? NO Urine Glucose NEGATIVE (NEGATIVE) mg/dL - Progress Progress: improved Progress Note: Right knee shows displaced medial femoral condyle fracture with hemarthrosis. There is some osteopenia. Large effusion on the left. We do not have orthopedic immediately available to further care for patient we will transfer patient for further evaluation and treatment. Plan of care discussed with patient. Patient agrees to transfer. We are currently making phone calls to arrange for local transfer to higher level of care 12/09/21 15:37 Case discussed with trauma surgeon at [facility] who accepts transfer. 12/09/21 16:06 Counseled pt/family regarding: lab results, diagnosis, rad results - Departure Departure Disposition: Transfer Clinical Impression: Displaced fracture of medial condyle of femur, Hemarthrosis, Effusion, left knee, Fall Condition: Stable Critical Care Time: No Referrals: DOCTOR,NO FAMILY [Primary Care Provider] - Follow up/PCP as directed
[2021-12-09] MEDS ORDERED: Hydromorphone 1 mg/ml Injection IV ONE ×2 (14:26→17:49)
[2021-12-09] MEDS ORDERED: Hydromorphone 1 mg/ml Injection ONE ×2 (14:29→18:33)
--- NOTE | 2021-12-09 14:49 | XRAY ---
Indication: Pain and swelling following fall. Comparison: None Portable AP/lateral left lower leg demonstrates osteopenia, tiny anterior soft tissue calcified granulomas, large anterior knee soft tissue swelling/hematoma, 2 femoral condyle orthopedic screws, small plantar heel spur, and ankle/midfoot degenerative changes. No other bony, articular, or soft tissue abnormalities.
--- NOTE | 2021-12-09 14:58 | XRAY ---
Indication: Pain following fall. Comparison: None Portable AP/lateral right lower leg demonstrates displaced medial femoral condyle fracture with hemarthrosis. Elsewhere osteopenia, old distal fibula/medial malleolus fractures with intact orthopedic hardware, and tiny anterior soft tissue calcified granulomas.
[2021-12-09] MEDS ORDERED: Sodium Chloride 0.9% 1000 ML 1,000 ML ONE (15:26)
[2021-12-09] MEDS ORDERED: Sodium Chloride 0.9% 1000 ML 1,000 ML IV SCH (15:30)
[2021-12-09 15:46] LABS: Absolute Neutrophil Ct (ANC) 8.84 (1.4-6.9); Basophil (Absolute #) 0.04 (0-0.4); Eosinophil % 0.8 % (0.00-5.0); Eosinophil (Absolute #) 0.09 (0-0.5); Hematocrit 32.9 % (35-47); Hemoglobin 10.4 gm/dl (12.0-16.0); Lymphocyte (Absolute #) 1.34 (1.0-4.6); Lymphocytes % 12.5 % (24.0-44.0); Mean Cell Volume 95.9 fl (78-100); Mean Corpuscular Hemoglobin 30.3 pg (26-32); Mean Corpuscular Hgb Concent. 31.6 g/dl (32-36); Mean Platelet Volume 9.6 fl (7.5-11.0); Monocyte (Absolute #) 0.43 (0.0-1.3); Neutrophil % 82.3 % (36.0-66.0); Platelet Count 254 K/mm3 (150-450); Red Blood Count 3.43 M/mm3 (4.1-5.4); Red Cell Distribution Width 13.1 % (11.5-14.0); White Blood Count 10.7 K/mm3 (4.0-10.5)
[2021-12-09 15:58] LABS: ALBUMIN 3.4 g/dL (3.5-5.0); BILIRUBIN,TOTAL 0.6 mg/dL (0.2-1.3); Calcium 8.5 mg/dL (8.4-10.2); Creatinine 1 1.35 mg/dL (0.52-1.04); EST GLOMERULAR FILTRATION RATE 41.1 ML/MIN
[2021-12-09 17:05] VITALS: PULSE 78
[2021-12-09 18:01] LABS: Appearance CLEAR (CLEAR); Bilirubin NEGATIVE (NEGATIVE); Glucose NEGATIVE (NEGATIVE); Ketones NEGATIVE (NEGATIVE)
[2021-12-09 18:02] LABS: Nitrite NEGATIVE (NEGATIVE); Protein,Urine Dip NEGATIVE (Negative); RBC NEGATIVE Ery/ul (0-5); Urine Cultured Indicated? NO; Urobilinogen 0.2 mg/dL (0-1)
[2021-12-09 18:03] LABS: Dipstick done @ ? MAIN LAB
[2021-12-09 18:07] VITALS: O2SAT 98
[2021-12-09 18:50] VITALS: BP 130/65
== END 2021-12-09 19:00 | disposition short-term general hospital (02) ==
LOC: ED 14:07
DX: S72.431A Displaced fracture of medial condyle of right femur, initial encounter for closed fracture (principal); W10.2XXA Fall (on)(from) incline, initial encounter; S83.91XA Sprain of unspecified site of right knee, initial encounter; M25.462 Effusion, left knee; I10 Essential (primary) hypertension; E11.42 Type 2 diabetes mellitus with diabetic polyneuropathy; K21.9 Gastro-esophageal reflux disease without esophagitis; Z79.899 Other long term (current) drug therapy
CPT/HCPCS: 36415; 51702; 73590; 80053; 81015; 85025; 87086; 96374; 96376; 99285; J1170